=== PATIENT | female | born 1940 | race Caucasian/White ===

== ENCOUNTER 2017-02-18 12:14 | Inpatient (IN) | payer MEDICARE ==
[~2017-02-18] VITALS: Ht 157.5 cm; Wt 65.1 kg
--- NOTE | ~2017-02-18 | IDS ---
Interim Discharge Summary [facility] [address] [place]. [address] NAME: BENNY LYNCH : 42 STATUS : ADM IN [facility]#: [id number] AGE: 76 ADM/REG DATE : 02/18/17 MR#: [id number] REPORT SERV DATE: 02/21/17 DICTATED BY: JULIANNE CLAIRE DATE: 02/21/17 REPORT STATUS : Draft TRANSCRIBED BY: ALEX DATE: 02/21/17 ADMISSION DATE: 02/18/2017 DISCHARGE DATE: CONSULTATION: See AR, Cardiology. CURRENT DIAGNOSES: 1. Acute on chronic heart failure, reduced ejection fraction 25%. 2. Atrial flutter/atrial fibrillation, on chronic anticoagulation. 3. Acute hypoxic respiratory failure. 4. Chronic obstructive pulmonary disease. 5. Kidney disease stage 3. 6. Hypertension. 7. Left bundle branch block. 8. History of coronary artery disease, status post coronary artery bypass graft, 2 vessels, x2. 9. History of bioprosthetic mitral valve replacement. 10.Diabetes mellitus type 2. 11.Chronic anemia. 12.Gastroesophageal reflux disease. 13.Hyperlipidemia. 14.Depression. 15.Anxiety disorder. INVASIVE PROCEDURE PERFORMED DURING THIS ADMISSION: None. PENDING PROCEDURES: Transesophageal echocardiogram and cardiac ablation scheduled for 02/23/2017. HISTORY OF PRESENT ILLNESS: In brief, this is a 76-year-old female with medical history of coronary artery disease status post CABG, bioprosthetic mitral valve replacement, heart failure with reduced EF of 25%, suspected COPD, who presented to the emergency room after she was noticed at the Cardiac rehab to have oxygen saturation in the low 70s. She was brought into the emergency department for further evaluation. PHYSICAL EXAMINATION: VITAL SIGNS: On presentation, saturation 94% on 3 L of oxygen. BP 113/73, temperature 97.3. CHEST: Expiratory wheezing with very faint at both half of her lung moe bilaterally. LABORATORY DATA: ABG showed pH of 7.42, PaCO2 of 38, and PO2 of 58. WBC was 5.3, hemoglobin was 12.5, hematocrit was 40, platelets was 129,000. Troponin was 0.03. Chest x-ray shows pulmonary vascular congestions with asymmetric infiltrates. EKG shows atrial fibrillation with RVR and left bundle branch block. An assessment of hypoxic respiratory failure due to acute decompensated heart failure and possible COPD exacerbation with questionable pneumonia was made in the ER. The patient was Interim Discharge Summary [address] [place]. [address] NAME: BENNY LYNCH : 41 STATUS : ADM IN PAT#: [id number] AGE: 76 ADM/REG DATE : 02/18/17 MR#: [id number] REPORT SERV DATE: 02/21/17 DICTATED BY: JULIANNE CLAIRE DATE: 02/21/17 REPORT STATUS : Draft TRANSCRIBED BY: MODAmber DATE: 02/21/17 admitted to the Hospitalist Service. HOSPITAL COURSE: 1. Acute on chronic heart failure with reduced ejection fraction. The patient was started on IV diuretics, fluid restrictions, and home dose of Coreg was continued. Cardiology was consulted, and agreed to continue IV diuretics. Cardiology noted that the patient may require a REGIONAL OPERATIONS MANAGER device when the patient is able to tolerate an invasive procedure. Pending that time to continue addition of spironolactone, beta annette, and diuretics. 2. Atrial fibrillation/atrial flutter. The patient's EKG strings were reviewed by Cardiology who is in agreement with the diagnosis of tachyarrhythmias, aflutter/atrial fibrillation. The patient is on chronic anticoagulation with warfarin and will undergo TERENCE with a possible ablation during this admission. The procedure is now scheduled to 02/23/2017. 3. Pulmonary infiltrates of possible pneumonia. The patient received IV azithromycin and ceftriaxone. No cough. The patient's repeat procalcitonin was less than 0.05 after she has collected antibiotics to p.o. azithromycin and Omnicef to complete a total of seven days therapy. 4. COPD. The patient is currently receiving DuoNebs, EzPAP, and Symbicort p.r.n. Presently, not on steroids. I will continue to monitor the patient's oxygen requirement, and if she develops wheezing may initiate steroids if needed. 5. Chronic kidney disease stage 3. The patient's creatinine ranges from 1.5 to 1.8. The patient's current creatinine is 1.7. Continue IV diuretics and monitor renal function closely. CURRENT CONDITION: Stable. DISCHARGE DISPOSITION: Pending. IOO/MODL Julianne Claire MD / [id number] CC: MD Jake Boateng M.D.
--- NOTE | ~2017-02-18 | IDS ---
Interim Discharge Summary [facility] [address] [place]. [address] NAME: BENNY LYNCH : 42 STATUS : ADM IN PAT#: [id number] AGE: 76 ADM/REG DATE : 02/18/17 MR#: [id number] REPORT SERV DATE: 03/08/17 DICTATED BY: LENO ASHLEY DATE: 03/08/17 REPORT STATUS : Draft TRANSCRIBED BY: MODL DATE: 03/08/17 ADMISSION DATE: 02/18/2017 DISCHARGE DATE: PRINCIPAL DIAGNOSIS: Acute on chronic systolic congestive heart failure, ejection fraction 25%. SECONDARY DIAGNOSES: Chronic kidney disease, stage 4 with acute prerenal kidney failure, also hypoxemic respiratory failure, COPD, generalized weakness, atrial fibrillation. HISTORY OF PRESENT ILLNESS: Please see Dr. Motta' dictation on 02/18. HOSPITAL COURSE: Please see Dr. Davis's dictation 02/[address] Damico's dictation 02/26. Subsequent hospital course, the patient eventually was able to leave the ICU with improving respirations, but with deteriorating creatinine following diuresis. She was found to have actually become volume depleted and IV fluids were given with some improvement in her creatinine. A 24-hour creatinine clearance was actually being done at the time of this dictation, as her BUN to creatinine ratio was so high that we suspected very poor creatinine clearance. The patient actually was feeling quite well, although she was not tolerating any specific CHF therapies. Carvedilol was being reintroduced at the time of this dictation, however, plans were made to transfer to [facility] hopefully tomorrow. MARÍA/ALEX Leno Ashley M.D. / [id number] CC: Desiree Ramos M.D. Elmer Philip Lehman, IV, MD
--- NOTE | ~2017-02-18 | DS ---
Discharge Summary [place] [place]. [address] NAME: BENNY LYNCH : 41 STATUS : DIS IN PAT#: [id number] AGE: 76 ADM/REG DATE : 02/18/17 MR#: [id number] REPORT SERV DATE: 03/10/17 DICTATED BY: DUGLAS BHATT DATE: 03/09/17 REPORT STATUS : Draft TRANSCRIBED BY: MODL DATE: 03/09/17 ADMISSION DATE: 02/18/2017 DISCHARGE DATE: 03/09/2017 DISCHARGE DIAGNOSES: 1. Acute on chronic systolic heart failure with reduced ejection fraction of 25%. 2. Acute kidney injury on chronic kidney disease, stage IV. 3. Hypoxemic respiratory failure. 4. Chronic obstructive pulmonary disease. 5. Atrial fibrillation. 6. Generalized weakness. 7. Hypovolemia. 8. History of coronary artery bypass graft with mitral valve replacement. CONSULTING PHYSICIANS: Include Dr. Ralph Figueroa with Nephrology as well as Dr. Bruce Jonas with [facility] Cardiology as well as Dr. Sandra Damico, [facility]. DISCHARGE MEDICATIONS: Include allopurinol 100 mg p.o. daily, vitamin C 1000 mg p.o. b.i.d., aspirin 81 mg p.o. daily, Lipitor 40 mg p.o. at bedtime, amiodarone 200 mg p.o. daily, Coreg 3.125 mg p.o. b.i.d., coenzyme Q10 100 mg p.o. at bedtime, Colace 200 mg p.o. daily, melatonin 3 mg p.o. at bedtime, Remeron 15 mg p.o. at bedtime, Prilosec 40 mg p.o. daily, MiraLAX one packet p.o. daily, Mirapex 0.125 mg p.o. at bedtime, Coumadin sliding scale, budesonide inhalation b.i.d., Spiriva two puffs inhalation daily, Xopenex p.r.n. for shortness of breath, and torsemide 20 mg p.o. daily. For full H and P, please refer to Dr. Cherrie Motta' history and physical on 02/18/2017. Please also see interim discharge summaries by Dr. Julianne Davis as well as Dr. Sandra Damico and Dr. Paulo Bryan. Please also see consultation dictations by Dr. Ralph Figueroa as well as Dr. Bruce Jonas. HOSPITAL COURSE: Again, please see prior dictations, the last dictation was interim discharge summary by Dr. Paulo Bryan yesterday. The patient has remained hemodynamically stable in the last 24 hours. There was a concern of acute kidney injury on chronic kidney disease. Nephrology has followed creatinine today, it is actually down to 1.9, which I believe is her baseline. We will continue torsemide daily per Nephrology recommendations, if needed, they will follow her at [facility] post discharge. She also had some hypotension earlier in her hospital stay and her antihypertensives have been discontinued. She has not tolerated heart failure medications very well since admission. Coreg was reintroduced yesterday at 3.125 mg p.o. b.i.d. per Cardiology. Her blood pressure has been stable with a systolic blood pressure ranging from 100s to 120s. She is tolerating this. She does not complain of shortness of breath or chest pain. No lower extremity edema is present. Her initial heart failure exacerbation has been controlled with diuretics. She will follow up with [facility] Cardiology as an outpatient after going to [facility] for rehab prior to going home. Due to coordination with case management as well as discharge planning, medication Discharge Summary [address] [address] NAME: BENNY LYNCH : 41 STATUS : DIS IN PAT#: [id number] AGE: 76 ADM/REG DATE : 02/18/17 MR#: [id number] REPORT SERV DATE: 03/10/17 DICTATED BY: DUGLAS BHATT DATE: 03/09/17 REPORT STATUS : Draft TRANSCRIBED BY: MODL DATE: 03/09/17 reconciliation, education of the patient, this discharge took greater than 30 minutes. MAYA/ALEX Minh Sorto, ELEAZAR Duglas Bhatt MD / [id number] CC: MD Jake Avendano M.D.
--- NOTE | ~2017-02-18 | IDS ---
Interim Discharge Summary [facility] [address] [place]. [address] NAME: BENNY LYNCH : 41 STATUS : ADM IN PAT#: [id number] AGE: 76 ADM/REG DATE : 02/18/17 MR#: [id number] REPORT SERV DATE: 02/26/17 DICTATED BY: JONY DAMICO DATE: 02/26/17 REPORT STATUS : Draft TRANSCRIBED BY: MODAmber DATE: 02/26/17 ADMISSION DATE: 02/18/2017 DISCHARGE DATE: This patient was admitted to the Hospitalist Service on 02/18/2017. For details of admission, see the H and P on 02/18/2017, interim discharge summary on 02/22/2017. So this dictation will cover events from the 02/22/2017 to 02/26/2017. Briefly, this is a 76-year-old patient, who is status post previous open heart surgery done by Dr. Fisher in July of 2016. She had mitral valve replacement as well. She was admitted because she had increasing shortness of breath, and was found to be in rapid atrial fibrillation. She was seen by Cardiology, and it was thought prudent to try and get her into at least a normal sinus rhythm, and there was some consideration of possibly doing an ablation. The patient was taken to the EP lab on Wednesday, and during the TERENCE, required intubation secondary to hypoxia. She was in rapid atrial fibrillation. She was cardioverted after there was no evidence of clot seen on the TERENCE. However, ablation was not done since there were continued difficulties with her oxygenation. The patient remained intubated, and was then taken to the CVICU for further care. During the TERENCE, she was found to have an ejection fraction of 25%, severe tricuspid regurg, a PFO with uvalj-cf-minc shunt. There were some difficulties oxygenating her, and she responded well to being put on dobutamine on Wednesday night. [place] catheter was placed as well. She was on as much as 7.5 mcg/kg/minute of dobutamine. She did not tolerate dopamine. She has required aggressive diuresis, and seems to be responding to being put on a Bumex drip at 2 mg an hour. She initially was on 1 mg an hour without good results. Diuril was then added and increased on the 02/26/2017 to 150 mg IV b.i.d. She has underlying CKD at level 3, and Nephrology is following the patient, and agrees with diuretics. She also carries a history of COPD, but the extent of her COPD is unknown. In my opinion, most of this is cardiogenic. In any event, the patient on 02/26/2017, seems to be improving, and actually is off dobutamine. Continues to be aggressively diuresed, and has tolerated spontaneous breathing trials. The plan will be to continue aggressive diuresis, and if stable, extubate the patient over the weekend. I have discussed with the family as has Dr. Colbert about code status. She currently is a full code, and if she fails extubation, the family wants her at least briefly to be re-intubated. Issues with constipation have been addressed. /MODL Jony Damico M.D. / [id number] CC: Desiree Lopez M.D.
--- NOTE | ~2017-02-18 | HP ---
History And Physical [place] [address] [facility] [place]. [address] NAME: BENNY LYNCH : 41 STATUS : ADM IN [facility]#: [id number] AGE: 76 ADM/REG DATE : 02/18/17 MR#: [id number] REPORT SERV DATE: 02/18/17 DICTATED BY: CORY MOTTA DATE: 02/18/17 REPORT STATUS : Draft TRANSCRIBED BY: MODAmber DATE: 02/18/17 DATE OF ADMISSION: 02/18/2017 CHIEF COMPLAINT: Shortness of breath. HISTORY OF PRESENT ILLNESS: The patient is a very complex 76-year-old white female. She has a history of undergoing a coronary artery bypass grafting and mitral valve replacement with a bovine valve in 07/2016. In 06/2016, her EF is approximately 50%. She has had at least previous history of an admission in 10/2016 at [facility] where she was found to have an EF that had reduced to 25%. At that time, she had heart failure as well as some suspected COPD. She reports today to the emergency room after being a cardiac rehab where she was training on an elliptical business trainer, staff noted that her oxygen saturation was low and reported that her oxygen saturation was as low as 70. She was brought over via EMS. They had some difficulty obtaining a sat in the emergency department. Upon my arrival, I easily got a sat on her with a finger probe by changing the probe, she is 94% on 3 L. She reports she has had shortness of breath for about two to three weeks. She has had a cough, but not much in the way of sputum production. She has had some wheezing. Her daughter reports that she has been weak. Frequently at times, she gets short of breath while talking. She denies chest pain, abdominal pain, nausea, or vomiting. She had some previous edema that she had some lymphatic massage for in the past, but she has not had a lot of edema at this time. She previously smoked, but quit about 25 years ago. She has had no documented fevers or chills. PAST MEDICAL HISTORY: 1. CAD status post CABG. 2. Mitral valve replacement with a bovine valve, 07/2016. 3. Left bundle-branch block. 4. CHF with last EF reported at 25% in 10/2016. 5. COPD with history of tobacco abuse. 6. Previous pneumonia. 7. Chronic kidney disease, stage III. 8. Anemia, iron deficiency. 9. GERD. 10.Hypertension. 11.Hyperlipidemia. 12.PFO. 13.Arthritis. 14.Gout. 15.Skin cancer. 16.Depression. 17.Anxiety. 18.Hepatitis, unknown type remotely. SURGICAL HISTORY: 1. Nose surgery. 2. A plate in her leg. History And Physical [address] [address] NAME: BENNY LYNCH : 41 STATUS : ADM IN PAT#: [id number] AGE: 76 ADM/REG DATE : 02/18/17 MR#: [id number] REPORT SERV DATE: 02/18/17 DICTATED BY: CORY MOTTA DATE: 02/18/17 REPORT STATUS : Draft TRANSCRIBED BY: ALEX DATE: 02/18/17 3. Skin cancer excision. 4. CABG. 5. Mitral valve replacement with bovine valve. FAMILY HISTORY: Positive for hypertension and diabetes. SOCIAL HISTORY: She quit smoking about 20 years ago. She smoked for about 15 years, one- pack per day. She is . She does not use alcohol and she lives independently. ALLERGIES: NSAIDS, MORPHINE, AND CODEINE. HOME MEDICATIONS: Reviewed and attached. REVIEW OF SYSTEMS: Full 10-point review of systems obtained. Pertinent positives already mentioned in the HPI. PHYSICAL EXAMINATION: VITAL SIGNS: She is 95% on 3 L, most recent BP 113/73, temperature 97.3, pulse is anywhere from 99 to 115. GENERAL: Very frail appearing white female. HEENT: Normocephalic, atraumatic. Throat is clear. NECK: Supple. HEART: Irregular. Distant S1, S2. LUNGS: She has expiratory wheezing which is very faint about retirement up her lung moe bilaterally. She also has some very discrete crackles in bilateral lower lobes. ABDOMEN: Soft, nontender, nondistended. EXTREMITIES: Warm and dry. Pulses are as in the feet with palpation, but are easily found with a Doppler. She has some trace edema which is pedal. She has a small ulcer on her medial malleolus on the left lower extremity secondary to a screw that is migrating. This is not new today. PSYCH: Her mood and affect are appropriate. NEUROLOGIC: She has symmetrical strength and tone in all four extremities. Her speech is intact. Her cranial nerves 2 through 12 are intact. LAB AND X-RAY: AB.42/38/58. White count is 5.3, H and H 12.5 and 40, platelets are 129. Coags are normal. Chemistry panel: BUN and creatinine are 34 and 1.71, glucose 161. Troponin is 0.03. Mag is 2.1. The remainder of her electrolyte panel is normal. BNP is 2178. Chest x-ray shows what looks like to me asymmetrical edema, right greater than left. EKG showed what looks like AFib with RVR with a rate around 115 and a left bundle, this does appear to be new as far as the AFib. ASSESSMENT/PLAN: 1. Hypoxemic respiratory failure, acute on chronic with evidence of likely decompensated systolic heart failure as well as possible chronic obstructive pulmonary disease playing a role. I did consider pneumonia given the fact that she has an asymmetrical infiltrate on her chest x-ray. However, she has no white count. No fever. I think it is reasonable overnight to diurese her, attempt to control her atrial fibrillation with History And Physical [address] [address] NAME: BENNY LYNCH : 41 STATUS : ADM IN [facility]#: [id number] AGE: 76 ADM/REG DATE : 02/18/17 MR#: [id number] REPORT SERV DATE: 02/18/17 DICTATED BY: CORY MOTTA DATE: 02/18/17 REPORT STATUS : Draft TRANSCRIBED BY: ALEX DATE: 02/18/17 rate control initially, also diurese her with Lasix 40 mg IV q.8 hours. In addition, we will provide DuoNeb and cover her for pneumonia overnight until I see that her procalcitonin is normal and a repeat white count is normal in the morning. Hopefully, with diuresis, she will improve. I think given her ejection fraction of 25%, continued episodes of heart failure, she may be a patient who we should consider for AICD and pacer. 2. New onset atrial fibrillation. We will place her on Eliquis for rate control, continue her beta annette. May add a Cardizem drip should she need it. We will have Cardiology to see her in consultation. She has a complex patient with recent open heart surgery and now worsening systolic function in the face of new onset atrial fibrillation. 3. Chronic obstructive pulmonary disease with possible exacerbation. Again Robert Almanza, treat underlying heart failure. 4. History of chronic kidney disease, stable and in baseline. We will need to follow closely. 5. History of coronary artery disease, status post coronary artery bypass graft with a new ischemic cardiomyopathy since June. 6. Anticoagulation. She is going to be on Eliquis. 7. Anemia. Actually looks quite good today. She is status post IV iron. 8. Disposition. Pending above aforementioned plan and workup. BRANDEE/MODAmber Cory Motta M.D. / [id number] CC: MD Jake Boateng M.D. Robert Berglund, M.D.
--- NOTE | ~2017-02-18 | TEE ---
Transesophageal Echocardiogram [place] [address] [place]. [address] NAME: BENNY LYNCH : 41 STATUS : ADM IN [facility]#: [id number] AGE: 76 ADM/REG DATE : 02/18/17 MR#: [id number] REPORT SERV DATE: 02/23/17 DICTATED BY: DATE: REPORT STATUS : Draft TRANSCRIBED BY: MODL DATE: 02/23/17 ORDERING PHYSICIAN: Sunil Aguero M.D. INDICATION: Preoperative atrial flutter ablation. CONSENT: The patient's history was reviewed and appropriateness for the procedure was ascertained. There were no significant or concerning findings on history or exam such as dysphagia or esophageal stricture. All questions were answered and consent was obtained. PROCEDURE: Sedation via propofol administration by our Anesthesia colleagues was obtained. The probe was inserted without difficulty, and exam was performed as below. [place] through the exam, the patient developed some hypoxia, so the probe was withdrawn uneventfully in order to allow for intubation by Anesthesia in anticipation of the ablation. After intubation and airway were successfully secured, the remainder of the procedure continued without any disruption or complications. COMPLICATIONS: There were no immediate complications following the entirety of the procedure. FINDINGS: 1. LEFT VENTRICLE:. a. The left ventricle is severely hypokinetic with an estimated EF of 25%. In fact, there is evidence of dyskinesis visualized on the free mortensen of the left ventricle. 2. LEFT ATRIUM:. a. The left atrium is moderately to severely dilated. There is no evidence of atrial clot or poor forward flow. 3. LEFT ATRIAL APPENDAGE:. a. The left atrial appendage is status post ligation. This occurred in conjunction with the mitral valve replacement in July [address] Fisher. A blunted pouch was visualized, but no clot was visualized. Pulmonary veins were also visualized on the left upper pulmonary site. Doppler flow was obtained. 4. RIGHT VENTRICLE:. a. The right ventricle was mildly enlarged and mildly hypokinetic globally. 5. RIGHT ATRIUM:. a. The right atrium was severely enlarged owing to the severe TR as discussed below. 6. INTERATRIAL SEPTUM:. a. The interatrial septum was visualized in multiple planes. The patent foramina ovale was visualized, with what appears to be a cytyr-ys-kdav flow on account of the severe tricuspid regurgitation. 7. AORTIC VALVE:. a. The aortic valve is calcified and sclerotic. Stenosis is possible, but was not directly measured on this test. 8. MITRAL VALVE:. a. The mitral valve is status post bovine valve replacement. There was trivial regurgitation through the leaflets, which appeared normal. There is mild Transesophageal Echocardiogram [facility] [address] [place]. [address] NAME: BENNY LYNCH : 42 STATUS : ADM IN PAT#: [id number] AGE: 76 ADM/REG DATE : 02/18/17 MR#: [id number] REPORT SERV DATE: 02/23/17 DICTATED BY: DATE: REPORT STATUS : Draft TRANSCRIBED BY: MODL DATE: 02/23/17 trivial perivalvular leak, which was felt to be insignificant. 9. PULMONIC VALVE:. a. The pulmonic valve is not well-visualized. 10.TRICUSPID VALVE:. a. The tricuspid valve has severe TR visually, as well as by continuous-wave Doppler, which revealed a triangular pattern consistent with a severe TR. The PFO mentioned previously appeared to receive blood from the right atrium into the left atrium as a result of this tricuspid regurgitation. 11.DESCENDING AORTA:. a. The descending aorta was poorly-visualized, but mild to moderate atherosclerosis was visualized in that. CONCLUSION: 1. STATUS POST LEFT ATRIAL APPENDAGE LIGATION WITH BLUNTED POUCH, WITHOUT EVIDENCE OF RESIDUAL CLOT. 2. SEVERELY REDUCED LEFT VENTRICULAR EJECTION FRACTION WITH THE SYNCHRONY, ESTIMATED EF OF 25%. 3. SEVERE TR. 4. PFO IS PRESENT. 5. STATUS POST BOVINE MITRAL VALVE REPLACEMENT. 6. AT LEAST AORTIC SCLEROSIS. EPL/MODL Anjel Thorpe IV, MD / [id number] CC: MD Jake Boateng M.D.
--- NOTE | ~2017-02-18 | CN ---
Consultation Report [facility] [address]. [address] NAME: ELIZABETH SCHERER : 42 STATUS : ADM IN PAT#: [id number] AGE: 76 ADM/REG DATE : 02/18/17 MR#: [id number] REPORT SERV DATE: 02/19/17 DICTATED BY: DATE: REPORT STATUS : Draft TRANSCRIBED BY: MODL DATE: 02/18/17 DATE OF CONSULTATION: 02/18/2017 REASON FOR CONSULTATION: Acute on chronic systolic heart failure decompensation and new onset atrial fibrillation with rapid ventricular response. HISTORY OF PRESENT ILLNESS: Ms. Scherer is a delightful 76-year-old female with a history of ischemic cardiomyopathy, last EF 25%, without AICD; coronary artery disease, status post [address] 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 She is accompanied by her daughter, who provides a fair amount of history. Both the patient and the daughter admit that the patient while compliant with medications, has very little discretion with salt. She has stopped weighing herself daily, but she feels that she is probably up about five to ten pounds from her baseline weight. She has noted increasing dyspnea, and needs to sleep with her head raised. She denies PND. She endorses lower extremity edema. She also endorses dyspnea on exertion. She was complaining of these things a couple of weeks ago to another physician, but an EKG was not obtained. She was at cardiac rehab today, waiting to start the program, but was hypoxic and no oxygen could get her O2 levels up, reportedly. Consequently, she presented to the emergency department at their request. On arrival, it was noted that Ms. Elizabeth Scherer was in atrial fibrillation with RVR. Reportedly, her rates exceeded 100, but the highest rates we have on EKG are in the 90s to low 100s. She was admitted to the Hospitalist Service, and we are consulted to help with the above concerns. She does endorse that her heart is fast, but denies any palpitations. She does endorse dyspnea, but no chest pain. No nausea, vomiting, fevers, or chills. PAST MEDICAL HISTORY: 1. Coronary artery disease, status post two-vessel bypass grafting with left atrial appendage ligation and status post bioprosthetic mitral valve replacement. 2. Left bundle branch block. 3. Hypertension. 4. CKD stage 3. 5. COPD. 6. Type 2 diabetes. SOCIAL HISTORY: Former smoker. No alcohol. She is a as of this year. Consultation Report [place] [address] [place]. [address] NAME: ELIZABETH SCHERER : 42 STATUS : ADM IN PAT#: [id number] AGE: 76 ADM/REG DATE : 02/18/17 MR#: [id number] REPORT SERV DATE: 02/19/17 DICTATED BY: DATE: REPORT STATUS : Draft TRANSCRIBED BY: ALEX DATE: 02/18/17 FAMILY HISTORY: Both her mother and brother have a history of CHF. Her father had an SD. ALLERGIES: CEFDINIR, CODEINE, MORPHINE. CURRENT INPATIENT MEDICATIONS: 1. Apresoline 10 mg p.o. twice daily. 2. Bumex IV 1 mg q.8 hours. 3. Diltiazem drip, presently on hold. 4. Co-Q enzyme. 5. Coreg 3.125 mg p.o. twice daily. 6. Eliquis 2.5 mg p.o. twice a day. 7. Lipitor 40 mg p.o. at bedtime. 8. Mirapex 0.25 mg p.o. at bedtime. 9. Proventil inhaled every six hours. 10.Pulmicort twice a day. 11.Rocephin 1 g. 12.Vitamin C. Please note that the patient is normally on torsemide 20 mg p.o./10 mg at bedtime. She does not report being on Eliquis at all, this was started as an inpatient. REVIEW OF SYSTEMS: The patient endorses the aforementioned fast heart rate without palpitations, dyspnea. No PND. Mild lower extremity edema and weight gain. She also has had a cough. She reports easy bruising as well. She had previously been on warfarin, but was taken off it secondary to this bruising she says. She also endorses that she has had some blood loss, but she has not had a definitive workup for this. Specifically, she says that she, due to her heart, has been unable to undergo a colonoscopy. Her labs will be discussed later. PHYSICAL EXAMINATION: VITAL SIGNS: Heart rate 92, blood pressure 113/73, saturating 92% on 4 L nasal cannula. Her entry weight is 66 kg. GENERAL: Ms. Scherer is a pleasant female, elderly, in no acute distress. HEENT: Normocephalic and atraumatic. EOMI. Mucous membranes are dry. NECK: The JVP is elevated approximately 5 cm above the clavicle at 30 degrees. LUNGS: Diffuse inspiratory and expiratory wheezes are heard across the lung moe. CARDIOVASCULAR: The patient is irregularly irregular, borderline tachycardic. No murmur could be appreciated. ABDOMEN: Soft, nontender, and nondistended. EXTREMITIES: The patient has a resting tremor in her upper extremities. She also has 1+ lower extremity edema to her shins. NEUROLOGIC: Alert and oriented. Cranial nerves II through XII are grossly intact. LAB DATA: Hemoglobin 12.5, hematocrit 40.5, white count 5.3, and platelets are 129. BMP: Sodium 141, potassium 4.1, bicarb 24, BUN 34, creatinine 1.7, estimated GFR 29. Consultation Report [address] [place]. [address] NAME: ELIZABETH SCHERER : 42 STATUS : ADM IN [facility]#: [id number] AGE: 76 ADM/REG DATE : 02/18/17 MR#: [id number] REPORT SERV DATE: 02/19/17 DICTATED BY: DATE: REPORT STATUS : Draft TRANSCRIBED BY: MODL DATE: 02/18/17 Troponin I 0.03. BNP 2179. Magnesium 2.1. EKG: EKG reveals a tachycardic, seemingly irregular rhythm without obvious flutter waves, though this was considered but is difficult to discern despite multiple attempts secondary to baseline artifact. She also has numerous PVCs. Prior echocardiography: Prior echo was reviewed and was notable for moderate biatrial enlargement, an EF of 25%, mild aortic valve stenosis, and LV enlargement. She also had severe tricuspid regurgitation. ASSESSMENT AND PLAN: Ms. Scherer is a 76-year-old female with multiple cardiovascular issues. She seems to present in acute decompensated heart failure, and I agree with the hospitalist strategy to diurese her with IV Bumex. I would recommend a net negative loss of 2 L per day with strict Is and Os and daily weights. I am concerned that this new onset atrial dysrhythmia, which I favored to be atrial fibrillation, is exacerbating her heart failure. Unfortunately, with her EF down, as well as moderate biatrial enlargement, it will probably be very tricky for her to stay in a normal sinus rhythm. Hopefully with diuresis, this might be the case. I would like to try and get her TERENCE cardioverted tomorrow, though I am unaware whether or not we have an opening on our schedule for that at this time. I will inquire to see if it may be the case. In the interim, I would like to stop her Eliquis. She said she had mitral regurgitation, but now she has a bioprosthetic mitral valve. In general, I tend to treat valvular atrial fibrillation with warfarin over the NOACs. While technically, mitral valve regurgitation is not a contraindication of NOAC, with her having a bioprosthetic valve, I would favor warfarin. Thus, I will start her on a heparin drip tonight so she can become therapeutic by tomorrow, and initiate her on 4 mg of warfarin p.o. tonight. She also has an appointment tomorrow with Dr. Serrato at 09:30 to consider ICD implantation. While this is important in the long run, I will put it on the back burner for now. Typically, we do not implant primary prevention defibrillators at the end of hospitalization, but depending on how she does, as well as our availability, this may be a possibility. [facility] will continue to follow. Thank you for this consult. EPL/MODL Anjel Thorpe IV, MD / [id number] Consultation Report [place] [id number] [facility] [address] NAME: ELIZABETH SCHERER : 42 STATUS : ADM IN PAT#: [id number] AGE: 76 ADM/REG DATE : 02/18/17 MR#: [id number] REPORT SERV DATE: 02/19/17 DICTATED BY: DATE: REPORT STATUS : Draft TRANSCRIBED BY: ALEX DATE: 02/18/17 CC: MD Jake Boateng M.D.
--- NOTE | ~2017-02-18 | CN ---
Consultation Report [facility] [address] [place]. [address] NAME: BENNY LYNCH : 42 STATUS : ADM IN PAT#: [id number] AGE: 76 ADM/REG DATE : 02/18/17 MR#: [id number] REPORT SERV DATE: 02/22/17 DICTATED BY: RHONDA ABRAHAM SAMUEL O. DATE: 02/19/17 REPORT STATUS : Draft TRANSCRIBED BY: ALEX DATE: 02/19/17 ELECTROPHYSIOLOGY CONSULTATION I WAS ASKED SEE THE PATIENT FOR ATRIAL FLUTTER. DATE OF CONSULTATION: PRIMARY QUARANTINE INSPECTOR: Dr. Thorpe. HISTORY: A 76-year-old female with history of coronary disease, status post CABG; severe mitral regurgitation, status post mitral valve replacement with a bioprosthetic valve in 07/2016; heart failure with reduced ejection fraction with an EF of 25%, who presented to the hospital with acute decompensated heart failure and was noted to be in atrial flutter with heart rates of 90-120 beats per minute. She has now been diuresed and remains with heart rates in 90s to 120. Review of the EKGs reveal typical appearing atrial flutter. The patient has had a history of atrial fibrillation in the past especially in the postoperative period. She has never had prior ablation. She was briefly on amiodarone and the postoperative state, but apparently had complications with this and was not able to tolerate it. Much of the history is obtained by her family members to include her daughter. Apparently over the last year, the patient has had a continual decline in her functional status. She was having increased dyspnea on exertion and after found to have coronary artery disease and her severe mitral regurgitation, I was hopeful to have improvement in her symptoms in 07/2016. Afterwards she had pain and was given multiple narcotics and just never really bounced back per the family. She also has hypertension, stage 3 CKD, COPD, and type 2 diabetes. PAST MEDICAL HISTORY: 1. Coronary artery disease, status post two-vessel CABG with a left atrial appendage ligation and severe bioprosthetic mitral valve replacement for severe mitral regurgitation. 2. History of left bundle-branch block. 3. Hypertension. 4. CKD, stage 3. 5. COPD. 6. Type 2 diabetes. SOCIAL HISTORY: Prior smoker, but not currently. There is no alcohol use. Her did within the last year. She has several daughters who are very active in her medical care. FAMILY HISTORY: Her father had a myocardial infarction. Consultation Report [address] [place]. [address] NAME: BENNY LYNCH : 42 STATUS : ADM IN PAT#: [id number] AGE: 76 ADM/REG DATE : 02/18/17 MR#: [id number] REPORT SERV DATE: 02/22/17 DICTATED BY: ROHNDA ABRAHAM SAMUEL O. DATE: 02/19/17 REPORT STATUS : Draft TRANSCRIBED BY: ALEX DATE: 02/19/17 ALLERGIES: CEFDINIR, CODEINE, AND MORPHINE. CURRENT ACTIVE INPATIENT MEDICINES: She is on hydralazine 10 mg p.o. b.i.d., carvedilol 3.125 mg p.o. b.i.d., aspirin 81 a day, atorvastatin 40 at bedtime, Bumex 1 mg b.i.d., and warfarin 4 mg at night. She has been on a heparin drip. She is also on noncardiac medicines of the vitamin C, azithromycin, Rocephin, coenzyme Q10, Spiriva, pantoprazole, levalbuterol, polyethylene glycol, pramipexole, Atrovent. REVIEW OF SYMPTOMS: Negative other than described above. PHYSICAL EXAMINATION: GENERAL: A very pleasant female, elderly, sitting up in a chair. Tachypneic and dyspneic. VITAL SIGNS: Weight is 67.4 kg, temperature of 97, pulse of 105, blood pressure 116/77, respirations of 22, saturating 96% on 40% FiO2. HEENT: Normocephalic, atraumatic. Moist mucous membranes. Nasal cannula in place. There is jugular venous distention to 10 cm. There are no carotid bruits. CHEST: Midline sternotomy. LUNGS: Have rales in the inferior third. CARDIOVASCULAR: Tachycardic. Regular rhythm. No murmurs, rubs, or gallops. ABDOMEN: Soft, nontender, and nondistended. EXTREMITIES: There is mild edema to the mid-de la rosa and pulses are diminished distally. NEUROLOGIC: Alert and oriented fully. No focal deficits. PSYCHIATRIC: Normal mood and affect. LABORATORY DATA: Sodium 142, potassium 3.9, BUN of 33, creatinine of 1.6. White blood cell count 4.8, hemoglobin of 12.5, platelets of 135. Troponin of 0.16. BNP of 2200. Electrocardiogram reveals atrial flutter with a heart rate of 95. There is a left bundle- branch block. The flutter waves are negative in the inferior leads, positive in V1. Telemetry reveals atrial flutter, rates 90 to 120. PROBLEMS: 1. Atrial tachyarrhythmias. She is currently in atrial flutter with rates of 90s to 120s. This appears to be cavotricuspid isthmus dependent. Of note, she has a history of atrial fibrillation by history and did not tolerate amiodarone in the postoperative state. I think she is a reasonable candidate for EP study and radiofrequency ablation, but at the current time, will need diuresis in order to be optimized for the procedure. She initially was placed for TERENCE cardioversion today, but was unable to have this scheduled. I have discussed with the patient and her daughters the options for treatment and they wished to proceed with ablation. The risks of the procedure were discussed to include bleeding, damage to the heart muscle, tamponade, damage to conduction system requiring a need for a pacemaker, allergic reaction, infection, vascular damage, and all questions were answered. Tentatively we will plan for continue to diurese to optimize patient and likely TERENCE on Wednesday followed by EP study and ablation. The patient will require long-term anticoagulation given her history of atrial fibrillation. In the interim, we will rate control her. Consultation Report [place] [id number] [facility] [place]. [address] NAME: BENNY LYNCH : 42 STATUS : ADM IN PAT#: [id number] AGE: 76 ADM/REG DATE : 02/18/17 MR#: [id number] REPORT SERV DATE: 02/22/17 DICTATED BY: RHONDA ABRAHAM SAMUEL O. DATE: 02/19/17 REPORT STATUS : Draft TRANSCRIBED BY: ALEX DATE: 02/19/17 2. Heart failure with reduced ejection fraction of 25% with acute decompensated heart failure. This is likely exacerbated by her arrhythmia. Continue aggressive diuresis. Of note, she has a left bundle-branch block with her ejection fraction not responding to medical therapy, therefore she will need a HOUSING AND RESIDENCE LIFE DIRECTOR-D eventually. She has been treated with beta annette and hydralazine as she has been deemed not a candidate for HILTON or ARB and had a surgery done on 07/2016. 3. Hypoxia requiring supplemental oxygen at this time. This is secondary to acute decompensated heart failure as well as her underlying COPD. Continue to diurese. 4. Coronary artery disease, status post CABG. Continue her aspirin and statin. Currently not having angina. 5. Elevated troponin. Suspect this is secondary to heart failure. 6. History of COPD. 7. CKD, stage 3. PLAN: 1. Continue to diurese as you are doing. 2. Likely TERENCE followed by EP study and ablation on Wednesday or Wednesday of next week. 3. Continue oral anticoagulation given her bioprosthetic aortic valve as well as atrial flutter and history of atrial fibrillation. Coumadin is reasonable as you are doing. 4. Will attempt to rate control the patient. We are switching from carvedilol to metoprolol today. Thank you very much for this interesting consult. SOJ/MODL Bruce Abraham MD / [id number] CC: MD Jake Boateng M.D.
--- NOTE | ~2017-02-18 | CN ---
Consultation Report [facility] [address] [place]. [address] NAME: BENNY SCHERER : 42 STATUS : ADM IN [facility]#: [id number] AGE: 76 ADM/REG DATE : 02/18/17 MR#: [id number] REPORT SERV DATE: 02/24/17 DICTATED BY: ESTEFANI DORSEY DATE: 02/24/17 REPORT STATUS : Draft TRANSCRIBED BY: MODL DATE: 02/24/17 NEPHROLOGY CONSULT DATE OF CONSULTATION: 02/24/2017 REASON FOR CONSULT: Acute kidney injury on chronic kidney disease. HISTORY OF PRESENT ILLNESS: Ms. Scherer is a 76-year-old white female, who appears to have some degree of chronic kidney disease. Baseline creatinine appears to be in the 1.4 to 1.8 range dating back to January 2016. She was seen here at [facility] by our group in July 2016 when she developed acute kidney injury with creatinine peaking at 2.1 postop. Dialysis was not required. She has been here this time since 02/18/2017. Since admission, her creatinine has fluctuated between 1.6 and 1.8. She went into atrial fibrillation, flutter and yesterday underwent cardioversion, but developed hypoxia and hypotension during an attempted ablation. She ended up on the ventilator and is now in the CV ICU on Levophed and dobutamine. Urine output has decreased over the last 24 hours. Her CVP is 15 and today creatinine is 1.9. Chest x-ray shows mild bilateral perihilar edema. PAST MEDICAL HISTORY: 1. Chronic kidney disease, baseline creatinine 1.4 to 1.8 since January 2016. 2. CABG x2 with MVR in July 2016. 3. Reported EF 25% with unknown right-sided pressures. 4. COPD. 5. Hypertension. 6. Hyperlipidemia. 7. Atrial fibrillation/flutter postop day #1, cardioversion. MEDICATIONS: Vitamin C, aspirin, Lipitor, Ceftin, CoQ10, hydralazine 10 mg b.i.d., melatonin, Lopressor 25 mg q.8 hours, Protonix, MiraLAX, potassium 10 mEq t.i.d. Mirapex, Coumadin sliding scale, fentanyl URBAN RENEWAL MANAGER, dobutamine at 7.5, and Levophed at 3. Family history, social history, and review of systems could not be obtained in to the patient's current condition on the ventilator. PHYSICAL EXAMINATION: VITAL SIGNS: Temperature 99.3, pulse 70, respirations 23, blood pressure 93/51, 91% sat on 40% FiO2. CVP 15, 3219 mL of intake with 1958 mL of urine output documented in the last 24 hours with a recent decrease in urine output per nursing staff. GENERAL: She is an ill-appearing elderly white female on the ventilator, presently in no distress. HEENT: Sclerae without icterus. Conjunctivae not injected. Oropharynx is clear. NECK: JVD 10 cm. She has diffuse bilateral rhonchi without dyspnea or tachypnea on the ventilator. Regular rate and rhythm. 2/6 murmur. No rub. ABDOMEN: Soft, nontender, nondistended. Consultation Report [address] [place]. [address] NAME: BENNY SCHERER : 42 STATUS : ADM IN [facility]#: [id number] AGE: 76 ADM/REG DATE : 02/18/17 MR#: [id number] REPORT SERV DATE: 02/24/17 DICTATED BY: ESTEFANI DORSEY DATE: 02/24/17 REPORT STATUS : Draft TRANSCRIBED BY: ALEX DATE: 02/24/17 EXTREMITIES: Showed no edema. SKIN: Shows no rash. She has clear yellow urine in the Goyal catheter with subjective decrease in urine output. NEURO: Deferred. LABORATORY DATA: Sodium 136, potassium 4.5, bicarb 25, BUN 41, creatinine 1.9, GFR 25, procalcitonin 0.23, calcium 8.8, magnesium 2.3, phosphorus 3.4, albumin 2.7. Liver function tests normal. Hemoglobin 11.8, white count 6.4 thousand without eosinophilia. INR 2.8. Platelets 138,000. ASSESSMENT AND PLAN: Ms. Scherer has chronic kidney disease, baseline creatinine 1.4 to 1.8, now with acute kidney injury; hypotension, on pressors; respiratory failure; postop day #1 cardioversion for atrial fibrillation/flutter; coronary disease with bypass surgery and mitral valve replacement in July 2016; EF 25%; volume overload; decreased urine output; and hypoalbuminemia. I suspect her acute kidney injury is most likely related to acute tubular necrosis from renal hypoperfusion from relative hypoxia and hypotension after her procedure yesterday. We will diurese and follow with her elevated CVP. We will try Bumex, albumin, and Diuril to see if we can increase urine output. Continue supportive care. Watch labs. Avoid nephrotoxic medications. Overall, she is a poor chronic dialysis candidate with her multiple comorbid illnesses. Hopefully, dialysis can be avoided. We will follow closely with you and appreciate consult. NC/MODL Estefani Dorsey M.D. / [id number] CC: Desiree Lopez M.D.
[~2017-02-18 12:14] MED LIST: ACTOS45 PO; ADVIL PO; ALTA2.5 PO; AMIT75 PO; APRES10B PO; APRES50 PO; ASAB PO; BACDS PO; BACTROINT TOP; BISR PR; BIST PO; BUSPAR15 M1 PO; BUSPAR5 PO; CALCIUM PO; CIP5 PO; CLIN200 PO; CO Q-10 PO; CO Q-10100 MG PO; CO Q-1050 MG PO; COENZYME Q10 PO; COREG12 PO; COREG3 PO; COREG6 PO; DEMA20 PO; FERROUS SULF325 M1 PO; FISH-EPA1000 MG PO; FLEET ENEMA PR; FLEX PO; FLORASTOR250 MG PO; GLUCPH PO; IMDUR120 PO; IMDUR30 PO; IRON INFUSION IV; IRON PO; ISMO20 MG PO; ISOSORB DIN30 MG PO; K250 PO; K500 PO; KDUR20 PO; KLOR-CON M2020 MEQ PO; L40 PO; LEVAQUIN5T PO; LIPITOR10 PO; LIPITOR40 PO; LODOSYN PO; METAMUCIL CAN7 OZ PO; MIRALAXPKT PO; MIRAPEX125 PO; MOMUD PO; MONOKET PO; NORCO1 TA1 PO; OCEAN NAS; OMNICEF300 PO; P10 PO; P5 PO; POTASSIUM PO; PR25 PO; PRILOSEC40 MG PO; SENTAB PO; SIN25 PO; SKELAXIN8 PO; SPIRO25 PO; T PO; TAMIFLU PO; TRAZ50 PO; TRICOR PO; TRICOR145 PO; VITAMIN C100 MG PO; VITC500 PO; VOLTAREN1 % TOP; [UNRECOGNIZED DRUG - OTHER] PO; [UNRECOGNIZED DRUG - OTHER] PO; [UNRECOGNIZED DRUG - REMARK] TOP
[2017-02-18 13:40] LABS: BASOPHILS 0.8 %; BASOPHILS ABSOLUTE 0.04 10/3/uL (0.0-0.16); EOSINOPHILS 3.6 %; EOSINOPHILS ABSOLUTE 0.19 10/3/uL (0.0-0.53); ER CBC TAT 0 Hrs 05 Mins; HEMATOCRIT 40.5 % (36.0-48.0); HEMOGLOBIN 12.5 g/dL (12.0-16.0); LYMPHOCYTES 14.5 %; LYMPHOCYTES ABSOLUTE 0.76 10/3/uL (0.67-4.30); MEAN CORPUS HGB CONC 30.9 g/dL (32.0-36.0); MEAN CORPUSCULAR HEMOGLOB 27.2 pg (26.0-34.0); MEAN PLATELET VOLUME 10.9 fL (9.2-13.0); MONOCYTES 10.1 %; MONOCYTES ABSOLUTE 0.53 10/3/uL (0.21-1.20); NEUTROPHILS ABSOLUTE 3.73 10/3/uL (2.02-8.40); RBC DISTRIBUTION WIDTH 19.7 % (12.0-16.0); WHITE BLOOD CELLS 5.3 10/3/uL (4.5-10.5)
[2017-02-18 13:43] LABS: MANUAL DIFF NO %; PLATELET COUNT 129 10/3/uL (150-400)
[2017-02-18 13:48] LABS: PARTIAL THROMBO TIME 32.8 SEC (22.5-37.2)
[2017-02-18 13:48] LABS: ALLENS TEST Pos; BE (BASE EXCESS) -0.3 MEQ/L (0 +/- 2.5); CARBOXYHEMOGLOBIN 1.6 % (0-3); HCO3 (ACTUAL BICARBONATE) 23.9 MEQ/L (23-27); HEMOBLOGIN CONTENT 12.9 G/DL (12-16); INSTRUMENT SERIAL # 8087; METHEMOGLOBIN 0.4 % (0-3); O2 CONTENT 15.7 VOL% (18-24); PCO2 (CO2 TENSION) 38 MMHG (35-45); PO2 (O2 TENSION) 58 MMHG (79-93); SAMPLE Arterial; pH 7.42 (7.37-7.43)
[2017-02-18 13:49] LABS: INTERNATIONAL NORMAL RATI 1.4 UNITS (-); PROTIME (NOT ORD) 17.2 SEC (12.0-14.5)
[2017-02-18 13:54] LABS: BUN (BLOOD UREA NITROGEN) 34 MG/DL (6-23); CALCIUM, SERUM 8.3 MG/DL (8.5-10.4); CHEST PAIN PROFILE TAT 0 Hrs 19 Mins; CHLORIDE, SERUM 108 MMOL/L (96-112); CO2 (CARBON DIOXIDE) 24 MMOL/L (24-34); CREATININE 1.71 MG/DL (0.55-1.02); GFR AFRICAN AMERICAN 33 ML/MIN (>=60); GFR NON AFRICAN AMERICAN 29 ML/MIN (>=60); GLUCOSE, SERUM 161 MG/DL (60-99); POTASSIUM, SERUM 4.1 MMOL/L (3.5-5.3); SODIUM, SERUM 141 MMOL/L (135-148); TROPONIN I 0.03 NG/ML (<0.05)
[2017-02-18] MEDS ORDERED: VITC500 PO (16:09)
[2017-02-18] MEDS ORDERED: DEMA20 PO (16:10)
[2017-02-18] MEDS ORDERED: COREG3 PO (16:10)
[2017-02-18] MEDS ORDERED: APRES10B PO (16:10)
[2017-02-18] MEDS ORDERED: PRILOSEC40 MG PO (16:11)
[2017-02-18] MEDS ORDERED: ASAB PO (16:11)
[2017-02-18] MEDS ORDERED: KLOR-CON M2020 MEQ PO (16:12)
[2017-02-18] MEDS ORDERED: MIRAPEX125 PO (16:12)
[2017-02-18] MEDS ORDERED: LIPITOR40 PO (16:12)
[2017-02-18] MEDS ORDERED: CO Q-1050 MG PO (16:12)
[2017-02-18] MEDS ORDERED: SENTAB PO (16:13)
[2017-02-18] MEDS ORDERED: 8 HOUR650 MG PO (16:14)
[2017-02-18] MEDS ORDERED: OCEAN NAS (16:15)
[2017-02-18] MEDS ORDERED: MIRALAX POWDER1 PKT PO (16:15)
[2017-02-18] MEDS ORDERED: SPIRIVA RESPIMAT INH (16:16)
[2017-02-18] MEDS ORDERED: FLEX PO (16:16)
[2017-02-18] MEDS ORDERED: PR25 PO (16:16)
[2017-02-19 06:01] LABS: BASOPHILS 0.4 %; BASOPHILS ABSOLUTE 0.02 10/3/uL (0.0-0.16); EOSINOPHILS 4.4 %; EOSINOPHILS ABSOLUTE 0.21 10/3/uL (0.0-0.53); HEMOGLOBIN 12.5 g/dL (12.0-16.0); LYMPHOCYTES 14.7 %; MANUAL DIFF NO %; MEAN CORPUS HGB CONC 30.5 g/dL (32.0-36.0); MEAN CORPUSCULAR HEMOGLOB 26.9 pg (26.0-34.0); MEAN CORPUSCULAR VOLUME 88.2 fL (80-100); MEAN PLATELET VOLUME 11.2 fL (9.2-13.0); MONOCYTES 12.4 %; MONOCYTES ABSOLUTE 0.59 10/3/uL (0.21-1.20); NEUTROPHILS 68.1 %; NEUTROPHILS ABSOLUTE 3.25 10/3/uL (2.02-8.40); PLATELET COUNT 135 10/3/uL (150-400); RBC DISTRIBUTION WIDTH 19.3 % (12.0-16.0); RED CELL COUNT 4.65 10/6/uL (4.0-5.6); WHITE BLOOD CELLS 4.8 10/3/uL (4.5-10.5)
[2017-02-19 06:06] LABS: INTERNATIONAL NORMAL RATI 1.4 UNITS (-); PROTIME (NOT ORD) 17.3 SEC (12.0-14.5)
[2017-02-19 06:07] LABS: PARTIAL THROMBO TIME 99.2 SEC (22.5-37.2)
[2017-02-19 06:23] LABS: BUN (BLOOD UREA NITROGEN) 33 MG/DL (6-23); CALCIUM, SERUM 8.5 MG/DL (8.5-10.4); CHLORIDE, SERUM 107 MMOL/L (96-112); CO2 (CARBON DIOXIDE) 26 MMOL/L (24-34); CREATININE 1.59 MG/DL (0.55-1.02); GFR AFRICAN AMERICAN 36 ML/MIN (>=60); GFR NON AFRICAN AMERICAN 31 ML/MIN (>=60); POTASSIUM, SERUM 3.9 MMOL/L (3.5-5.3); SODIUM, SERUM 142 MMOL/L (135-148); T4 (THYROXINE) TOTAL 6.1 MCG/DL (4.5-12.0)
[2017-02-19 06:26] LABS: GLUCOSE, SERUM 91 MG/DL (60-99)
[2017-02-19 06:28] LABS: TROPONIN I 0.16 NG/ML (<0.05)
[2017-02-20 06:01] LABS: BASOPHILS 0.7 %; BASOPHILS ABSOLUTE 0.04 10/3/uL (0.0-0.16); EOSINOPHILS 3.5 %; EOSINOPHILS ABSOLUTE 0.19 10/3/uL (0.0-0.53); HEMATOCRIT 39.7 % (36.0-48.0); HEMOGLOBIN 12.1 g/dL (12.0-16.0); IMMATURE GRANULOCYTES 0.2 %; IMMATURE GRANULOCYTES ABSOLUTE 0.01 10/3/uL (0.0-0.11); LYMPHOCYTES 19.2 %; LYMPHOCYTES ABSOLUTE 1.03 10/3/uL (0.67-4.30); MANUAL DIFF NO %; MEAN CORPUS HGB CONC 30.5 g/dL (32.0-36.0); MEAN CORPUSCULAR HEMOGLOB 26.6 pg (26.0-34.0); MEAN CORPUSCULAR VOLUME 87.3 fL (80-100); MONOCYTES 11.5 %; MONOCYTES ABSOLUTE 0.62 10/3/uL (0.21-1.20); NEUTROPHILS 64.9 %; NEUTROPHILS ABSOLUTE 3.48 10/3/uL (2.02-8.40); PLATELET COUNT 146 10/3/uL (150-400); RBC DISTRIBUTION WIDTH 19.3 % (12.0-16.0); RED CELL COUNT 4.55 10/6/uL (4.0-5.6); WHITE BLOOD CELLS 5.4 10/3/uL (4.5-10.5)
[2017-02-20 06:02] LABS: INTERNATIONAL NORMAL RATI 1.4 UNITS (-); PROTIME (NOT ORD) 17.2 SEC (12.0-14.5)
[2017-02-20 06:08] LABS: ALBUMIN 3.1 G/DL (3.5-5.0); BUN (BLOOD UREA NITROGEN) 36 MG/DL (6-23); CALCIUM, SERUM 8.8 MG/DL (8.5-10.4); CHLORIDE, SERUM 105 MMOL/L (96-112); CO2 (CARBON DIOXIDE) 25 MMOL/L (24-34); CREATININE 1.81 MG/DL (0.55-1.02); GFR AFRICAN AMERICAN 31 ML/MIN (>=60); GFR NON AFRICAN AMERICAN 27 ML/MIN (>=60); GLUCOSE, SERUM 94 MG/DL (60-99); PHOSPHORUS, SERUM 3.7 MG/DL (2.5-4.5); POTASSIUM, SERUM 3.9 MMOL/L (3.5-5.3); SODIUM, SERUM 141 MMOL/L (135-148)
[2017-02-21 06:18] LABS: BASOPHILS 1.1 %; BASOPHILS ABSOLUTE 0.06 10/3/uL (0.0-0.16); EOSINOPHILS ABSOLUTE 0.21 10/3/uL (0.0-0.53); HEMATOCRIT 40.1 % (36.0-48.0); HEMOGLOBIN 12.3 g/dL (12.0-16.0); IMMATURE GRANULOCYTES 0.2 %; IMMATURE GRANULOCYTES ABSOLUTE 0.01 10/3/uL (0.0-0.11); LYMPHOCYTES 19.1 %; LYMPHOCYTES ABSOLUTE 1.01 10/3/uL (0.67-4.30); MEAN CORPUS HGB CONC 30.7 g/dL (32.0-36.0); MEAN CORPUSCULAR HEMOGLOB 26.6 pg (26.0-34.0); MEAN CORPUSCULAR VOLUME 86.6 fL (80-100); MONOCYTES 12.5 %; MONOCYTES ABSOLUTE 0.66 10/3/uL (0.21-1.20); NEUTROPHILS 63.1 %; NEUTROPHILS ABSOLUTE 3.34 10/3/uL (2.02-8.40); PLATELET COUNT 137 10/3/uL (150-400); RBC DISTRIBUTION WIDTH 19.2 % (12.0-16.0); RED CELL COUNT 4.63 10/6/uL (4.0-5.6); WHITE BLOOD CELLS 5.3 10/3/uL (4.5-10.5)
[2017-02-21 06:19] LABS: MANUAL DIFF NO %
[2017-02-21 06:24] LABS: INTERNATIONAL NORMAL RATI 1.5 UNITS (-); PROTIME (NOT ORD) 17.8 SEC (12.0-14.5)
[2017-02-21 06:28] LABS: BUN (BLOOD UREA NITROGEN) 38 MG/DL (6-23); CALCIUM, SERUM 8.8 MG/DL (8.5-10.4); CHLORIDE, SERUM 106 MMOL/L (96-112); CO2 (CARBON DIOXIDE) 27 MMOL/L (24-34); GFR AFRICAN AMERICAN 34 ML/MIN (>=60); GFR NON AFRICAN AMERICAN 29 ML/MIN (>=60); GLUCOSE, SERUM 100 MG/DL (60-99); PHOSPHORUS, SERUM 4.2 MG/DL (2.5-4.5); POTASSIUM, SERUM 3.5 MMOL/L (3.5-5.3); SODIUM, SERUM 143 MMOL/L (135-148)
[2017-02-22 06:03] LABS: BASOPHILS 0.7 %; BASOPHILS ABSOLUTE 0.04 10/3/uL (0.0-0.16); EOSINOPHILS 3.7 %; HEMATOCRIT 39.2 % (36.0-48.0); HEMOGLOBIN 12.2 g/dL (12.0-16.0); IMMATURE GRANULOCYTES 0.2 %; IMMATURE GRANULOCYTES ABSOLUTE 0.01 10/3/uL (0.0-0.11); LYMPHOCYTES 21.5 %; LYMPHOCYTES ABSOLUTE 1.17 10/3/uL (0.67-4.30); MANUAL DIFF NO %; MEAN CORPUS HGB CONC 31.1 g/dL (32.0-36.0); MEAN CORPUSCULAR HEMOGLOB 27.2 pg (26.0-34.0); MEAN CORPUSCULAR VOLUME 87.3 fL (80-100); MEAN PLATELET VOLUME 10.3 fL (9.2-13.0); MONOCYTES 12.9 %; NEUTROPHILS ABSOLUTE 3.31 10/3/uL (2.02-8.40); PLATELET COUNT 123 10/3/uL (150-400); RED CELL COUNT 4.49 10/6/uL (4.0-5.6); WHITE BLOOD CELLS 5.4 10/3/uL (4.5-10.5)
[2017-02-22 06:08] LABS: INTERNATIONAL NORMAL RATI 1.8 UNITS (-)
[2017-02-22 06:09] LABS: PROTIME (NOT ORD) 20.6 SEC (12.0-14.5)
[2017-02-22 06:18] LABS: BUN (BLOOD UREA NITROGEN) 39 MG/DL (6-23); CHLORIDE, SERUM 106 MMOL/L (96-112); CO2 (CARBON DIOXIDE) 25 MMOL/L (24-34); CREATININE 1.64 MG/DL (0.55-1.02); GFR AFRICAN AMERICAN 35 ML/MIN (>=60); GFR NON AFRICAN AMERICAN 30 ML/MIN (>=60); GLUCOSE, SERUM 83 MG/DL (60-99); POTASSIUM, SERUM 3.4 MMOL/L (3.5-5.3); SODIUM, SERUM 140 MMOL/L (135-148)
[2017-02-23 01:44] LABS: BASOPHILS 0.4 %; BASOPHILS ABSOLUTE 0.02 10/3/uL (0.0-0.16); EOSINOPHILS 3.2 %; EOSINOPHILS ABSOLUTE 0.18 10/3/uL (0.0-0.53); HEMATOCRIT 37.6 % (36.0-48.0); HEMOGLOBIN 11.6 g/dL (12.0-16.0); IMMATURE GRANULOCYTES 0.2 %; IMMATURE GRANULOCYTES ABSOLUTE 0.01 10/3/uL (0.0-0.11); LYMPHOCYTES 15.2 %; LYMPHOCYTES ABSOLUTE 0.86 10/3/uL (0.67-4.30); MEAN CORPUS HGB CONC 30.9 g/dL (32.0-36.0); MEAN CORPUSCULAR HEMOGLOB 26.4 pg (26.0-34.0); MEAN CORPUSCULAR VOLUME 85.6 fL (80-100); MEAN PLATELET VOLUME 11.3 fL (9.2-13.0); MONOCYTES 13.4 %; MONOCYTES ABSOLUTE 0.76 10/3/uL (0.21-1.20); NEUTROPHILS 67.6 %; NEUTROPHILS ABSOLUTE 3.83 10/3/uL (2.02-8.40); PLATELET COUNT 147 10/3/uL (150-400); RBC DISTRIBUTION WIDTH 18.9 % (12.0-16.0); RED CELL COUNT 4.39 10/6/uL (4.0-5.6); WHITE BLOOD CELLS 5.7 10/3/uL (4.5-10.5)
[2017-02-23 01:45] LABS: MANUAL DIFF NO %
[2017-02-23 01:51] LABS: INTERNATIONAL NORMAL RATI 2.2 UNITS (-)
[2017-02-23 01:54] LABS: PARTIAL THROMBO TIME 126.6 SEC (22.5-37.2); PROTIME (NOT ORD) 24.3 SEC (12.0-14.5)
[2017-02-23 01:57] LABS: ALBUMIN 3.1 G/DL (3.5-5.0); BUN (BLOOD UREA NITROGEN) 39 MG/DL (6-23); CALCIUM, SERUM 8.9 MG/DL (8.5-10.4); CHLORIDE, SERUM 102 MMOL/L (96-112); CO2 (CARBON DIOXIDE) 27 MMOL/L (24-34); CREATININE 1.58 MG/DL (0.55-1.02); GFR AFRICAN AMERICAN 37 ML/MIN (>=60); GFR NON AFRICAN AMERICAN 32 ML/MIN (>=60); GLUCOSE, SERUM 94 MG/DL (60-99); POTASSIUM, SERUM 3.9 MMOL/L (3.5-5.3); SODIUM, SERUM 140 MMOL/L (135-148)
[2017-02-23 11:46] LABS: BE (BASE EXCESS) -0.8 MEQ/L (0 +/- 2.5); CARBOXYHEMOGLOBIN 0.6 % (0-3); HCO3 (ACTUAL BICARBONATE) 23.3 MEQ/L (23-27); HEMOBLOGIN CONTENT 12.5 G/DL (12-16); INSTRUMENT SERIAL # 11843; METHEMOGLOBIN 0.5 % (0-3); MODE SIMV; O2 CONTENT 17.3 VOL% (18-24); OPERATOR ID 13624; PCO2 (CO2 TENSION) 37 MMHG (35-45); PO2 (O2 TENSION) 137 MMHG (79-93); PRESSURE SUPPORT 10 cm.H2O; SAMPLE Arterial; TIDAL VOLUME 500 ML; pH 7.42 (7.37-7.43)
[2017-02-23 13:57] LABS: BASOPHILS 0.3 %; BASOPHILS ABSOLUTE 0.02 10/3/uL (0.0-0.16); EOSINOPHILS ABSOLUTE 0.06 10/3/uL (0.0-0.53); HEMATOCRIT 37.7 % (36.0-48.0); HEMOGLOBIN 11.6 g/dL (12.0-16.0); IMMATURE GRANULOCYTES 0.2 %; IMMATURE GRANULOCYTES ABSOLUTE 0.01 10/3/uL (0.0-0.11); LYMPHOCYTES 12.5 %; LYMPHOCYTES ABSOLUTE 0.74 10/3/uL (0.67-4.30); MEAN CORPUS HGB CONC 30.8 g/dL (32.0-36.0); MEAN CORPUSCULAR HEMOGLOB 26.4 pg (26.0-34.0); MEAN CORPUSCULAR VOLUME 85.9 fL (80-100); MEAN PLATELET VOLUME 10.7 fL (9.2-13.0); MONOCYTES 12.5 %; MONOCYTES ABSOLUTE 0.74 10/3/uL (0.21-1.20); NEUTROPHILS 73.5 %; NEUTROPHILS ABSOLUTE 4.37 10/3/uL (2.02-8.40); PLATELET COUNT 125 10/3/uL (150-400); RBC DISTRIBUTION WIDTH 18.8 % (12.0-16.0); RED CELL COUNT 4.39 10/6/uL (4.0-5.6); WHITE BLOOD CELLS 5.9 10/3/uL (4.5-10.5)
[2017-02-23 13:58] LABS: MANUAL DIFF NO %
[2017-02-23 14:20] LABS: A/G RATIO 0.8 (0.7-1.9); ALBUMIN 2.8 G/DL (3.5-5.0); ALKALINE PHOSPHATASE 89 U/L (45-117); BUN (BLOOD UREA NITROGEN) 40 MG/DL (6-23); CALCIUM, SERUM 9.2 MG/DL (8.5-10.4); CHLORIDE, SERUM 103 MMOL/L (96-112); CO2 (CARBON DIOXIDE) 27 MMOL/L (24-34); CREATININE 1.67 MG/DL (0.55-1.02); GFR AFRICAN AMERICAN 34 ML/MIN (>=60); GFR NON AFRICAN AMERICAN 30 ML/MIN (>=60); GLOBULIN 3.5 G/DL (2.5-4.1); GLUCOSE, SERUM 121 MG/DL (60-99); POTASSIUM, SERUM 3.4 MMOL/L (3.5-5.3); SGOT(AST) 24 U/L (5-40); SGPT(ALT) 17 U/L (5-65); SODIUM, SERUM 139 MMOL/L (135-148); TOTAL BILIRUBIN 0.8 MG/DL (0-1.2); TOTAL PROTEIN 6.3 G/DL (6.0-8.5)
[2017-02-23 18:21] LABS: CARBOXYHEMOGLOBIN 0.6 % (0-3); HCO3 (ACTUAL BICARBONATE) 27.5 MEQ/L (23-27); HEMOBLOGIN CONTENT 13.3 G/DL (12-16); INSTRUMENT SERIAL # 11843; METHEMOGLOBIN 0.5 % (0-3); MODE CMV; O2 CONTENT 15.9 VOL% (18-24); OPERATOR ID 13624; PCO2 (CO2 TENSION) 42 MMHG (35-45); PO2 (O2 TENSION) 54 MMHG (79-93); SAMPLE Arterial; TIDAL VOLUME 500 ML; pH 7.44 (7.37-7.43)
[2017-02-23 22:40] LABS: ALBUMIN 3.1 G/DL (3.5-5.0); BUN (BLOOD UREA NITROGEN) 41 MG/DL (6-23); CALCIUM, SERUM 9.4 MG/DL (8.5-10.4); CHLORIDE, SERUM 101 MMOL/L (96-112); CO2 (CARBON DIOXIDE) 25 MMOL/L (24-34); CREATININE 1.78 MG/DL (0.55-1.02); GFR AFRICAN AMERICAN 32 ML/MIN (>=60); GFR NON AFRICAN AMERICAN 27 ML/MIN (>=60); PHOSPHORUS, SERUM 3.4 MG/DL (2.5-4.5); SODIUM, SERUM 138 MMOL/L (135-148)
[2017-02-23 22:43] LABS: GLUCOSE, SERUM 87 MG/DL (60-99); POTASSIUM, SERUM 4.6 MMOL/L (3.5-5.3)
[2017-02-24 03:42] LABS: HEMATOCRIT 37.1 % (36.0-48.0); HEMOGLOBIN 11.8 g/dL (12.0-16.0); MEAN CORPUS HGB CONC 31.8 g/dL (32.0-36.0); MEAN CORPUSCULAR HEMOGLOB 26.6 pg (26.0-34.0); MEAN CORPUSCULAR VOLUME 83.7 fL (80-100); MEAN PLATELET VOLUME 11.5 fL (9.2-13.0); PLATELET COUNT 138 10/3/uL (150-400); RBC DISTRIBUTION WIDTH 18.5 % (12.0-16.0); RED CELL COUNT 4.43 10/6/uL (4.0-5.6); WHITE BLOOD CELLS 6.4 10/3/uL (4.5-10.5)
[2017-02-24 03:43] LABS: MANUAL DIFF YES %
[2017-02-24 03:49] LABS: INTERNATIONAL NORMAL RATI 2.8 UNITS (-); PROTIME (NOT ORD) 29.1 SEC (12.0-14.5)
[2017-02-24 03:58] LABS: ALBUMIN 2.9 G/DL (3.5-5.0); ALKALINE PHOSPHATASE 94 U/L (45-117); BUN (BLOOD UREA NITROGEN) 40 MG/DL (6-23); CALCIUM, SERUM 9.3 MG/DL (8.5-10.4); CHLORIDE, SERUM 101 MMOL/L (96-112); CO2 (CARBON DIOXIDE) 25 MMOL/L (24-34); GFR AFRICAN AMERICAN 31 ML/MIN (>=60); GFR NON AFRICAN AMERICAN 27 ML/MIN (>=60); GLUCOSE, SERUM 89 MG/DL (60-99); INDIRECT BILIRUBIN(NOT ORDER) 0.6 MG/DL (0.1-0.9); PHOSPHORUS, SERUM 2.5 MG/DL (2.5-4.5); POTASSIUM, SERUM 3.9 MMOL/L (3.5-5.3); SGOT(AST) 23 U/L (5-40); SGPT(ALT) 15 U/L (5-65); SODIUM, SERUM 138 MMOL/L (135-148); TOTAL BILIRUBIN 1.2 MG/DL (0-1.2); TOTAL PROTEIN 6.3 G/DL (6.0-8.5)
[2017-02-24 03:59] LABS: DIRECT BILIRUBIN 0.6 MG/DL (0.0-0.4)
[2017-02-24 04:03] LABS: ANISOCYTOSIS 1+ (5-10/OIF) (0-5/OIF); BAND NEUTROPHILS 2 %; ELLIPTOCYTES 1+ (3-10/OIF) (0-2/OIF); EOSINOPHILS 2 %; EOSINOPHILS ABSOLUTE (CALC) 0.13 10/3/uL (0.0-0.53); LYMPHOCYTES 6 %; LYMPHOCYTES ABSOLUTE (CALC) 0.38 10/3/uL (0.67-4.30); MONOCYTES 10 %; MONOCYTES ABSOLUTE (CALC) 0.64 10/3/uL (0.21-1.20); NEUTROPHILS ABSOLUTE (CALC) 5.25 10/3/uL (2.02-8.40); PLATELET ESTIMATE SLT DEC (ADEQUATE); SEGMENTED NEUTROPHIL (0) 80 %; TEARDROP SHAPED RBCS FEW (3-10/OIF); TOTAL NUCLEATED CELLS 100
[2017-02-24 05:10] LABS: BE (BASE EXCESS) 3.6 MEQ/L (0 +/- 2.5); CARBOXYHEMOGLOBIN 0.4 % (0-3); HCO3 (ACTUAL BICARBONATE) 24.3 MEQ/L (23-27); HEMOBLOGIN CONTENT 12.1 G/DL (12-16); INSTRUMENT SERIAL # 11843; METHEMOGLOBIN 0.4 % (0-3); MODE PCV; O2 CONTENT 16.2 VOL% (18-24); PCO2 (CO2 TENSION) 26 MMHG (35-45); PO2 (O2 TENSION) 81 MMHG (79-93); PRESSURE SUPPORT 12 cm.H2O; SAMPLE Arterial; pH 7.59 (7.37-7.43)
[2017-02-24 06:15] LABS: BE (BASE EXCESS) 0.6 MEQ/L (0 +/- 2.5); CARBOXYHEMOGLOBIN 0.7 % (0-3); HEMOBLOGIN CONTENT 12.2 G/DL (12-16); INSTRUMENT SERIAL # 11843; METHEMOGLOBIN 0.3 % (0-3); MODE CMV; O2 CONTENT 15.8 VOL% (18-24); PCO2 (CO2 TENSION) 30 MMHG (35-45); PO2 (O2 TENSION) 69 MMHG (79-93); SAMPLE Arterial; TIDAL VOLUME 420 ML
[2017-02-24 09:15] LABS: ALLENS TEST Pos; BE (BASE EXCESS) 0.6 MEQ/L (0 +/- 2.5); CARBOXYHEMOGLOBIN 0.4 % (0-3); HCO3 (ACTUAL BICARBONATE) 23.9 MEQ/L (23-27); HEMOBLOGIN CONTENT 12.2 G/DL (12-16); INSTRUMENT SERIAL # 11843; METHEMOGLOBIN 0.5 % (0-3); MODE CMV; O2 CONTENT 15.7 VOL% (18-24); OPERATOR ID 13715; PCO2 (CO2 TENSION) 34 MMHG (35-45); PO2 (O2 TENSION) 67 MMHG (79-93); SAMPLE Arterial; TIDAL VOLUME 420 ML; pH 7.47 (7.37-7.43)
[2017-02-24 10:14] LABS: PROCALCITONIN 0.18 ng/mL (<0.5)
[2017-02-24 10:34] LABS: ALBUMIN 2.7 G/DL (3.5-5.0); BUN (BLOOD UREA NITROGEN) 41 MG/DL (6-23); CALCIUM, SERUM 8.8 MG/DL (8.5-10.4); CHLORIDE, SERUM 102 MMOL/L (96-112); CO2 (CARBON DIOXIDE) 25 MMOL/L (24-34); CREATININE 1.94 MG/DL (0.55-1.02); GFR AFRICAN AMERICAN 29 ML/MIN (>=60); GFR NON AFRICAN AMERICAN 25 ML/MIN (>=60); GLUCOSE, SERUM 90 MG/DL (60-99); PHOSPHORUS, SERUM 3.4 MG/DL (2.5-4.5); POTASSIUM, SERUM 4.5 MMOL/L (3.5-5.3); SODIUM, SERUM 136 MMOL/L (135-148)
[2017-02-24 11:40] LABS: PROCALCITONIN 0.23 ng/mL (<0.5)
[2017-02-24 17:25] LABS: ALBUMIN 2.9 G/DL (3.5-5.0); BUN (BLOOD UREA NITROGEN) 43 MG/DL (6-23); CALCIUM, SERUM 9.1 MG/DL (8.5-10.4); CHLORIDE, SERUM 101 MMOL/L (96-112); CO2 (CARBON DIOXIDE) 25 MMOL/L (24-34); CREATININE 2.01 MG/DL (0.55-1.02); GFR AFRICAN AMERICAN 27 ML/MIN (>=60); GFR NON AFRICAN AMERICAN 24 ML/MIN (>=60); GLUCOSE, SERUM 96 MG/DL (60-99); PHOSPHORUS, SERUM 4.1 MG/DL (2.5-4.5); POTASSIUM, SERUM 4.1 MMOL/L (3.5-5.3); SODIUM, SERUM 135 MMOL/L (135-148)
[2017-02-25 04:01] LABS: ALLENS TEST Pos; BE (BASE EXCESS) -0.7 MEQ/L (0 +/- 2.5); CARBOXYHEMOGLOBIN 0.6 % (0-3); HCO3 (ACTUAL BICARBONATE) 23.4 MEQ/L (23-27); HEMOBLOGIN CONTENT 11.9 G/DL (12-16); INSTRUMENT SERIAL # 11843; METHEMOGLOBIN 0.4 % (0-3); MODE CMV; O2 CONTENT 15.3 VOL% (18-24); OPERATOR ID 23712; PCO2 (CO2 TENSION) 37 MMHG (35-45); PO2 (O2 TENSION) 66 MMHG (79-93); SAMPLE Arterial; TIDAL VOLUME 420 ML; pH 7.42 (7.37-7.43)
[2017-02-25 04:16] LABS: BASOPHILS 0.1 %; BASOPHILS ABSOLUTE 0.01 10/3/uL (0.0-0.16); EOSINOPHILS 0.7 %; EOSINOPHILS ABSOLUTE 0.06 10/3/uL (0.0-0.53); HEMATOCRIT 35.3 % (36.0-48.0); IMMATURE GRANULOCYTES 0.1 %; IMMATURE GRANULOCYTES ABSOLUTE 0.01 10/3/uL (0.0-0.11); LYMPHOCYTES 7.9 %; LYMPHOCYTES ABSOLUTE 0.65 10/3/uL (0.67-4.30); MANUAL DIFF NO %; MEAN CORPUS HGB CONC 31.2 g/dL (32.0-36.0); MEAN CORPUSCULAR HEMOGLOB 26.8 pg (26.0-34.0); MEAN CORPUSCULAR VOLUME 86.1 fL (80-100); MEAN PLATELET VOLUME 10.6 fL (9.2-13.0); MONOCYTES 11.9 %; MONOCYTES ABSOLUTE 0.98 10/3/uL (0.21-1.20); NEUTROPHILS 79.3 %; NEUTROPHILS ABSOLUTE 6.53 10/3/uL (2.02-8.40); PLATELET COUNT 121 10/3/uL (150-400); RBC DISTRIBUTION WIDTH 18.8 % (12.0-16.0); WHITE BLOOD CELLS 8.2 10/3/uL (4.5-10.5)
[2017-02-25 04:17] LABS: INTERNATIONAL NORMAL RATI 3.9 UNITS (-)
[2017-02-25 04:18] LABS: PROTIME (NOT ORD) 38.1 SEC (12.0-14.5)
[2017-02-25 04:33] LABS: BUN (BLOOD UREA NITROGEN) 46 MG/DL (6-23); CALCIUM, SERUM 8.9 MG/DL (8.5-10.4); CHLORIDE, SERUM 99 MMOL/L (96-112); CO2 (CARBON DIOXIDE) 26 MMOL/L (24-34); CREATININE 2.27 MG/DL (0.55-1.02); GFR AFRICAN AMERICAN 24 ML/MIN (>=60); GFR NON AFRICAN AMERICAN 20 ML/MIN (>=60); GLUCOSE, SERUM 103 MG/DL (60-99); PHOSPHORUS, SERUM 4.5 MG/DL (2.5-4.5); POTASSIUM, SERUM 3.7 MMOL/L (3.5-5.3); SODIUM, SERUM 137 MMOL/L (135-148)
[2017-02-25 18:50] LABS: POTASSIUM, SERUM 3.1 MMOL/L (3.5-5.3)
[2017-02-26 04:59] LABS: BASOPHILS 0.1 %; BASOPHILS ABSOLUTE 0.01 10/3/uL (0.0-0.16); EOSINOPHILS 0.7 %; EOSINOPHILS ABSOLUTE 0.06 10/3/uL (0.0-0.53); HEMATOCRIT 35.2 % (36.0-48.0); HEMOGLOBIN 10.9 g/dL (12.0-16.0); IMMATURE GRANULOCYTES 0.2 %; IMMATURE GRANULOCYTES ABSOLUTE 0.02 10/3/uL (0.0-0.11); LYMPHOCYTES 5.3 %; LYMPHOCYTES ABSOLUTE 0.44 10/3/uL (0.67-4.30); MEAN CORPUSCULAR VOLUME 87.1 fL (80-100); MEAN PLATELET VOLUME 10.8 fL (9.2-13.0); MONOCYTES 13.2 %; NEUTROPHILS 80.5 %; NEUTROPHILS ABSOLUTE 6.72 10/3/uL (2.02-8.40); PLATELET COUNT 111 10/3/uL (150-400); RBC DISTRIBUTION WIDTH 18.3 % (12.0-16.0); RED CELL COUNT 4.04 10/6/uL (4.0-5.6); WHITE BLOOD CELLS 8.4 10/3/uL (4.5-10.5)
[2017-02-26 05:02] LABS: MANUAL DIFF NO %
[2017-02-26 05:05] LABS: INTERNATIONAL NORMAL RATI 3.3 UNITS (-); PROTIME (NOT ORD) 33.5 SEC (12.0-14.5)
[2017-02-26 05:10] LABS: BUN (BLOOD UREA NITROGEN) 50 MG/DL (6-23); CALCIUM, SERUM 8.6 MG/DL (8.5-10.4); CHLORIDE, SERUM 97 MMOL/L (96-112); CO2 (CARBON DIOXIDE) 28 MMOL/L (24-34); CREATININE 2.15 MG/DL (0.55-1.02); GFR AFRICAN AMERICAN 25 ML/MIN (>=60); GFR NON AFRICAN AMERICAN 22 ML/MIN (>=60); GLUCOSE, SERUM 119 MG/DL (60-99); PHOSPHORUS, SERUM 4.6 MG/DL (2.5-4.5); POTASSIUM, SERUM 3.2 MMOL/L (3.5-5.3); SODIUM, SERUM 136 MMOL/L (135-148)
[2017-02-26 12:17] LABS: POTASSIUM, SERUM 3.7 MMOL/L (3.5-5.3)
[2017-02-26 14:35] LABS: ASCORBIC ACID (UR NOT ORDER) 40 (NEG); BILIRUBIN, URINE NEGATIVE (NEG); KETONE, URINE NEGATIVE (NEG); LEUKOCYTE ESTERASE(NOT OR SMALL (NEG); WBC (NOT ORDERED) (RFLEX) 25 (0-5)
[2017-02-26 19:12] LABS: BUN (BLOOD UREA NITROGEN) 53 MG/DL (6-23); CALCIUM, SERUM 8.9 MG/DL (8.5-10.4); CHLORIDE, SERUM 100 MMOL/L (96-112); CO2 (CARBON DIOXIDE) 27 MMOL/L (24-34); CREATININE 2.24 MG/DL (0.55-1.02); GFR AFRICAN AMERICAN 24 ML/MIN (>=60); GFR NON AFRICAN AMERICAN 21 ML/MIN (>=60); GLUCOSE, SERUM 137 MG/DL (60-99); POTASSIUM, SERUM 3.7 MMOL/L (3.5-5.3); SODIUM, SERUM 137 MMOL/L (135-148)
[2017-02-27 04:43] LABS: BASOPHILS 0.1 %; BASOPHILS ABSOLUTE 0.01 10/3/uL (0.0-0.16); EOSINOPHILS 0.6 %; EOSINOPHILS ABSOLUTE 0.04 10/3/uL (0.0-0.53); HEMATOCRIT 34.5 % (36.0-48.0); HEMOGLOBIN 10.8 g/dL (12.0-16.0); IMMATURE GRANULOCYTES 0.1 %; IMMATURE GRANULOCYTES ABSOLUTE 0.01 10/3/uL (0.0-0.11); LYMPHOCYTES 5.4 %; LYMPHOCYTES ABSOLUTE 0.38 10/3/uL (0.67-4.30); MEAN CORPUS HGB CONC 31.3 g/dL (32.0-36.0); MEAN CORPUSCULAR HEMOGLOB 27.1 pg (26.0-34.0); MEAN CORPUSCULAR VOLUME 86.5 fL (80-100); MEAN PLATELET VOLUME 10.3 fL (9.2-13.0); MONOCYTES ABSOLUTE 0.77 10/3/uL (0.21-1.20); NEUTROPHILS 82.8 %; NEUTROPHILS ABSOLUTE 5.79 10/3/uL (2.02-8.40); PLATELET COUNT 103 10/3/uL (150-400); RBC DISTRIBUTION WIDTH 18.3 % (12.0-16.0); RED CELL COUNT 3.99 10/6/uL (4.0-5.6)
[2017-02-27 04:44] LABS: MANUAL DIFF NO %
[2017-02-27 04:52] LABS: INTERNATIONAL NORMAL RATI 2.9 UNITS (-); PROTIME (NOT ORD) 30.2 SEC (12.0-14.5)
[2017-02-27 04:57] LABS: ALBUMIN 3.8 G/DL (3.5-5.0); BUN (BLOOD UREA NITROGEN) 58 MG/DL (6-23); CALCIUM, SERUM 9.4 MG/DL (8.5-10.4); CHLORIDE, SERUM 97 MMOL/L (96-112); CO2 (CARBON DIOXIDE) 30 MMOL/L (24-34); CREATININE 2.16 MG/DL (0.55-1.02); GFR AFRICAN AMERICAN 25 ML/MIN (>=60); GFR NON AFRICAN AMERICAN 22 ML/MIN (>=60); GLUCOSE, SERUM 111 MG/DL (60-99); PHOSPHORUS, SERUM 3.8 MG/DL (2.5-4.5); POTASSIUM, SERUM 3.3 MMOL/L (3.5-5.3); SODIUM, SERUM 135 MMOL/L (135-148)
[2017-02-27 17:03] LABS: ALLENS TEST Pos; BE (BASE EXCESS) 2.9 MEQ/L (0 +/- 2.5); CARBOXYHEMOGLOBIN 0.7 % (0-3); HCO3 (ACTUAL BICARBONATE) 28.7 MEQ/L (23-27); HEMOBLOGIN CONTENT 12.3 G/DL (12-16); INSTRUMENT SERIAL # 11843; METHEMOGLOBIN 0.5 % (0-3); MODE CMV; O2 CONTENT 15.7 VOL% (18-24); OPERATOR ID 13715; PCO2 (CO2 TENSION) 49 MMHG (35-45); PO2 (O2 TENSION) 66 MMHG (79-93); SAMPLE Arterial; TIDAL VOLUME 420 ML; pH 7.39 (7.37-7.43)
[2017-02-28 04:27] LABS: BASOPHILS 0 %; EOSINOPHILS 0 %; HEMATOCRIT 34.7 % (36.0-48.0); HEMOGLOBIN 10.7 g/dL (12.0-16.0); LYMPHOCYTES 2.9 %; LYMPHOCYTES ABSOLUTE 0.13 10/3/uL (0.67-4.30); MEAN CORPUS HGB CONC 30.8 g/dL (32.0-36.0); MEAN CORPUSCULAR HEMOGLOB 26.6 pg (26.0-34.0); MEAN CORPUSCULAR VOLUME 86.3 fL (80-100); MEAN PLATELET VOLUME 10.5 fL (9.2-13.0); MONOCYTES 3.5 %; MONOCYTES ABSOLUTE 0.16 10/3/uL (0.21-1.20); NEUTROPHILS 93.6 %; NEUTROPHILS ABSOLUTE 4.22 10/3/uL (2.02-8.40); PLATELET COUNT 114 10/3/uL (150-400); RBC DISTRIBUTION WIDTH 18.2 % (12.0-16.0); RED CELL COUNT 4.02 10/6/uL (4.0-5.6); WHITE BLOOD CELLS 4.5 10/3/uL (4.5-10.5)
[2017-02-28 04:28] LABS: MANUAL DIFF NO %
[2017-02-28 04:45] LABS: ALBUMIN 3.5 G/DL (3.5-5.0); ALKALINE PHOSPHATASE 89 U/L (45-117); CALCIUM, SERUM 9.6 MG/DL (8.5-10.4); CHLORIDE, SERUM 97 MMOL/L (96-112); CO2 (CARBON DIOXIDE) 29 MMOL/L (24-34); CREATININE 1.95 MG/DL (0.55-1.02); GFR AFRICAN AMERICAN 28 ML/MIN (>=60); GFR NON AFRICAN AMERICAN 25 ML/MIN (>=60); GLOBULIN 3.5 G/DL (2.5-4.1); PHOSPHORUS, SERUM 4.2 MG/DL (2.5-4.5); POTASSIUM, SERUM 3.3 MMOL/L (3.5-5.3); SGOT(AST) 16 U/L (5-40); SGPT(ALT) 15 U/L (5-65); SODIUM, SERUM 137 MMOL/L (135-148); TOTAL BILIRUBIN 0.9 MG/DL (0-1.2)
[2017-02-28 04:46] LABS: BUN (BLOOD UREA NITROGEN) 69 MG/DL (6-23); GLUCOSE, SERUM 190 MG/DL (60-99); INTERNATIONAL NORMAL RATI 2.9 UNITS (-); PROTIME (NOT ORD) 30.1 SEC (12.0-14.5)
[2017-02-28 09:50] LABS: ALLENS TEST Pos; BE (BASE EXCESS) 1.8 MEQ/L (0 +/- 2.5); CARBOXYHEMOGLOBIN 0.4 % (0-3); HCO3 (ACTUAL BICARBONATE) 26.2 MEQ/L (23-27); INSTRUMENT SERIAL # 11843; METHEMOGLOBIN 0.4 % (0-3); MODE cpap; O2 CONTENT 15.9 VOL% (18-24); PCO2 (CO2 TENSION) 40 MMHG (35-45); PO2 (O2 TENSION) 76 MMHG (79-93); PRESSURE SUPPORT 10 cm.H2O; SAMPLE Arterial; pH 7.43 (7.37-7.43)
[2017-02-28 23:00] LABS: BUN (BLOOD UREA NITROGEN) 81 MG/DL (6-23); CALCIUM, SERUM 9.4 MG/DL (8.5-10.4); CHLORIDE, SERUM 98 MMOL/L (96-112); CO2 (CARBON DIOXIDE) 28 MMOL/L (24-34); CREATININE 1.96 MG/DL (0.55-1.02); GFR AFRICAN AMERICAN 28 ML/MIN (>=60); GFR NON AFRICAN AMERICAN 24 ML/MIN (>=60); GLUCOSE, SERUM 168 MG/DL (60-99); POTASSIUM, SERUM 3.6 MMOL/L (3.5-5.3); SODIUM, SERUM 140 MMOL/L (135-148)
[2017-03-01 06:05] LABS: BASOPHILS 0 %; EOSINOPHILS 0 %; HEMATOCRIT 35.2 % (36.0-48.0); HEMOGLOBIN 10.8 g/dL (12.0-16.0); IMMATURE GRANULOCYTES 0.2 %; IMMATURE GRANULOCYTES ABSOLUTE 0.01 10/3/uL (0.0-0.11); LYMPHOCYTES 3.3 %; LYMPHOCYTES ABSOLUTE 0.15 10/3/uL (0.67-4.30); MANUAL DIFF NO %; MEAN CORPUS HGB CONC 30.7 g/dL (32.0-36.0); MEAN CORPUSCULAR HEMOGLOB 26.4 pg (26.0-34.0); MEAN CORPUSCULAR VOLUME 86.1 fL (80-100); MEAN PLATELET VOLUME 10.6 fL (9.2-13.0); MONOCYTES ABSOLUTE 0.27 10/3/uL (0.21-1.20); NEUTROPHILS 90.5 %; PLATELET COUNT 144 10/3/uL (150-400); RBC DISTRIBUTION WIDTH 18.3 % (12.0-16.0); RED CELL COUNT 4.09 10/6/uL (4.0-5.6); WHITE BLOOD CELLS 4.5 10/3/uL (4.5-10.5)
[2017-03-01 06:10] LABS: INTERNATIONAL NORMAL RATI 2.8 UNITS (-); PROTIME (NOT ORD) 29.4 SEC (12.0-14.5)
[2017-03-01 06:15] LABS: ALBUMIN 3.7 G/DL (3.5-5.0); CALCIUM, SERUM 9.3 MG/DL (8.5-10.4); CHLORIDE, SERUM 98 MMOL/L (96-112); CO2 (CARBON DIOXIDE) 28 MMOL/L (24-34); CREATININE 1.96 MG/DL (0.55-1.02); GFR AFRICAN AMERICAN 28 ML/MIN (>=60); GFR NON AFRICAN AMERICAN 24 ML/MIN (>=60); PHOSPHORUS, SERUM 3.4 MG/DL (2.5-4.5); SODIUM, SERUM 139 MMOL/L (135-148)
[2017-03-01 06:17] LABS: BUN (BLOOD UREA NITROGEN) 88 MG/DL (6-23); GLUCOSE, SERUM 205 MG/DL (60-99)
[2017-03-01 14:31] LABS: CALCIUM, SERUM 9.7 MG/DL (8.5-10.4); CHLORIDE, SERUM 99 MMOL/L (96-112); CO2 (CARBON DIOXIDE) 29 MMOL/L (24-34); CREATININE 1.91 MG/DL (0.55-1.02); GFR AFRICAN AMERICAN 29 ML/MIN (>=60); GFR NON AFRICAN AMERICAN 25 ML/MIN (>=60); GLUCOSE, SERUM 184 MG/DL (60-99); POTASSIUM, SERUM 3.9 MMOL/L (3.5-5.3); SODIUM, SERUM 139 MMOL/L (135-148)
[2017-03-01 14:32] LABS: BUN (BLOOD UREA NITROGEN) 95 MG/DL (6-23)
[2017-03-01 21:39] LABS: ASCORBIC ACID (UR NOT ORDER) 40 (NEG); BILIRUBIN, URINE NEGATIVE (NEG); KETONE, URINE NEGATIVE (NEG); LEUKOCYTE ESTERASE(NOT OR SMALL (NEG)
[2017-03-01 21:40] LABS: WBC (NOT ORDERED) (RFLEX) 5 (0-5)
[2017-03-01 23:03] LABS: HEMATOCRIT 33.6 % (36.0-48.0); HEMOGLOBIN 10.4 g/dL (12.0-16.0)
[2017-03-01 23:20] LABS: BUN (BLOOD UREA NITROGEN) 97 MG/DL (6-23); CALCIUM, SERUM 9.6 MG/DL (8.5-10.4); CHLORIDE, SERUM 97 MMOL/L (96-112); CO2 (CARBON DIOXIDE) 30 MMOL/L (24-34); GFR AFRICAN AMERICAN 31 ML/MIN (>=60); GFR NON AFRICAN AMERICAN 27 ML/MIN (>=60); GLUCOSE, SERUM 108 MG/DL (60-99); POTASSIUM, SERUM 3.8 MMOL/L (3.5-5.3); SODIUM, SERUM 138 MMOL/L (135-148)
[2017-03-02 03:56] LABS: BASOPHILS 0 %; EOSINOPHILS 0 %; HEMATOCRIT 35.8 % (36.0-48.0); LYMPHOCYTES 7.3 %; LYMPHOCYTES ABSOLUTE 0.56 10/3/uL (0.67-4.30); MEAN CORPUS HGB CONC 30.7 g/dL (32.0-36.0); MEAN CORPUSCULAR HEMOGLOB 26.7 pg (26.0-34.0); MEAN CORPUSCULAR VOLUME 86.9 fL (80-100); MEAN PLATELET VOLUME 10.4 fL (9.2-13.0); MONOCYTES 14.3 %; NEUTROPHILS 78.4 %; NEUTROPHILS ABSOLUTE 6.05 10/3/uL (2.02-8.40); PLATELET COUNT 161 10/3/uL (150-400); RBC DISTRIBUTION WIDTH 17.9 % (12.0-16.0); RED CELL COUNT 4.12 10/6/uL (4.0-5.6)
[2017-03-02 03:57] LABS: MANUAL DIFF NO %; WHITE BLOOD CELLS 7.7 10/3/uL (4.5-10.5)
[2017-03-02 04:02] LABS: INTERNATIONAL NORMAL RATI 2.4 UNITS (-); PROTIME (NOT ORD) 26.3 SEC (12.0-14.5)
[2017-03-02 04:11] LABS: BUN (BLOOD UREA NITROGEN) 98 MG/DL (6-23); CHLORIDE, SERUM 97 MMOL/L (96-112); CO2 (CARBON DIOXIDE) 31 MMOL/L (24-34); CREATININE 1.84 MG/DL (0.55-1.02); GFR AFRICAN AMERICAN 31 ML/MIN (>=60); GFR NON AFRICAN AMERICAN 26 ML/MIN (>=60); GLUCOSE, SERUM 123 MG/DL (60-99); POTASSIUM, SERUM 4.2 MMOL/L (3.5-5.3); SODIUM, SERUM 137 MMOL/L (135-148)
[2017-03-02 06:18] LABS: ALLENS TEST Pos; CARBOXYHEMOGLOBIN 0.5 % (0-3); DEVICE HFNC; HCO3 (ACTUAL BICARBONATE) 30.4 MEQ/L (23-27); HEMOBLOGIN CONTENT 11.3 G/DL (12-16); INSTRUMENT SERIAL # 11843; METHEMOGLOBIN 0.2 % (0-3); O2 CONTENT 14.9 VOL% (18-24); OPERATOR ID 16469; PCO2 (CO2 TENSION) 49 MMHG (35-45); PO2 (O2 TENSION) 77 MMHG (79-93); SAMPLE Arterial; pH 7.42 (7.37-7.43)
[2017-03-02 11:04] LABS: CREATININE, URINE 19.2 MG/DL
[2017-03-03 04:05] LABS: BASOPHILS 0 %; EOSINOPHILS 0.9 %; EOSINOPHILS ABSOLUTE 0.06 10/3/uL (0.0-0.53); HEMATOCRIT 34.9 % (36.0-48.0); HEMOGLOBIN 10.8 g/dL (12.0-16.0); IMMATURE GRANULOCYTES 0.3 %; IMMATURE GRANULOCYTES ABSOLUTE 0.02 10/3/uL (0.0-0.11); LYMPHOCYTES 12.1 %; LYMPHOCYTES ABSOLUTE 0.85 10/3/uL (0.67-4.30); MANUAL DIFF NO %; MEAN CORPUS HGB CONC 30.9 g/dL (32.0-36.0); MEAN CORPUSCULAR HEMOGLOB 26.6 pg (26.0-34.0); MEAN PLATELET VOLUME 10.3 fL (9.2-13.0); MONOCYTES 14.8 %; MONOCYTES ABSOLUTE 1.04 10/3/uL (0.21-1.20); NEUTROPHILS 71.9 %; NEUTROPHILS ABSOLUTE 5.06 10/3/uL (2.02-8.40); PLATELET COUNT 155 10/3/uL (150-400); RBC DISTRIBUTION WIDTH 17.7 % (12.0-16.0); RED CELL COUNT 4.06 10/6/uL (4.0-5.6)
[2017-03-03 04:10] LABS: INTERNATIONAL NORMAL RATI 2.4 UNITS (-); PROTIME (NOT ORD) 25.6 SEC (12.0-14.5)
[2017-03-03 04:18] LABS: A/G RATIO 1.4 (0.7-1.9); ALBUMIN 4.2 G/DL (3.5-5.0); BUN (BLOOD UREA NITROGEN) 99 MG/DL (6-23); CHLORIDE, SERUM 95 MMOL/L (96-112); CO2 (CARBON DIOXIDE) 34 MMOL/L (24-34); CREATININE 1.84 MG/DL (0.55-1.02); GFR AFRICAN AMERICAN 31 ML/MIN (>=60); GFR NON AFRICAN AMERICAN 26 ML/MIN (>=60); GLOBULIN 2.9 G/DL (2.5-4.1); POTASSIUM, SERUM 4.3 MMOL/L (3.5-5.3); SGOT(AST) 27 U/L (5-40); SGPT(ALT) 17 U/L (5-65); SODIUM, SERUM 138 MMOL/L (135-148); TOTAL PROTEIN 7.1 G/DL (6.0-8.5)
[2017-03-03 04:20] LABS: ALKALINE PHOSPHATASE 74 U/L (45-117); GLUCOSE, SERUM 92 MG/DL (60-99)
[2017-03-03 04:34] LABS: PROCALCITONIN 0.11 ng/mL (<0.5)
[2017-03-04 04:13] LABS: BASOPHILS 0 %; EOSINOPHILS ABSOLUTE 0.14 10/3/uL (0.0-0.53); HEMATOCRIT 33.6 % (36.0-48.0); HEMOGLOBIN 10.5 g/dL (12.0-16.0); IMMATURE GRANULOCYTES 0.1 %; IMMATURE GRANULOCYTES ABSOLUTE 0.01 10/3/uL (0.0-0.11); LYMPHOCYTES 10.2 %; MEAN CORPUS HGB CONC 31.3 g/dL (32.0-36.0); MEAN CORPUSCULAR HEMOGLOB 26.4 pg (26.0-34.0); MEAN CORPUSCULAR VOLUME 84.6 fL (80-100); MEAN PLATELET VOLUME 10.4 fL (9.2-13.0); MONOCYTES 10.2 %; NEUTROPHILS 77.5 %; NEUTROPHILS ABSOLUTE 5.29 10/3/uL (2.02-8.40); PLATELET COUNT 151 10/3/uL (150-400); RBC DISTRIBUTION WIDTH 17.5 % (12.0-16.0); RED CELL COUNT 3.97 10/6/uL (4.0-5.6); WHITE BLOOD CELLS 6.8 10/3/uL (4.5-10.5)
[2017-03-04 04:14] LABS: MANUAL DIFF NO %
[2017-03-04 04:24] LABS: INTERNATIONAL NORMAL RATI 2.3 UNITS (-); PROTIME (NOT ORD) 25.3 SEC (12.0-14.5)
[2017-03-04 04:37] LABS: CALCIUM, SERUM 9.4 MG/DL (8.5-10.4); CHLORIDE, SERUM 95 MMOL/L (96-112); CO2 (CARBON DIOXIDE) 32 MMOL/L (24-34); GFR AFRICAN AMERICAN 34 ML/MIN (>=60); GFR NON AFRICAN AMERICAN 29 ML/MIN (>=60); GLUCOSE, SERUM 78 MG/DL (60-99); SODIUM, SERUM 138 MMOL/L (135-148)
[2017-03-04 04:38] LABS: BUN (BLOOD UREA NITROGEN) 105 MG/DL (6-23); POTASSIUM, SERUM 3.4 MMOL/L (3.5-5.3)
[2017-03-04 10:36] LABS: BUN (BLOOD UREA NITROGEN) 99 MG/DL (6-23); CHLORIDE, SERUM 96 MMOL/L (96-112); CO2 (CARBON DIOXIDE) 33 MMOL/L (24-34); CREATININE 1.71 MG/DL (0.55-1.02); GFR AFRICAN AMERICAN 33 ML/MIN (>=60); GFR NON AFRICAN AMERICAN 29 ML/MIN (>=60); GLUCOSE, SERUM 98 MG/DL (60-99); POTASSIUM, SERUM 4.1 MMOL/L (3.5-5.3); SODIUM, SERUM 137 MMOL/L (135-148)
[2017-03-05 06:46] LABS: BASOPHILS 0 %; EOSINOPHILS 2.4 %; EOSINOPHILS ABSOLUTE 0.18 10/3/uL (0.0-0.53); HEMATOCRIT 34.9 % (36.0-48.0); HEMOGLOBIN 10.9 g/dL (12.0-16.0); IMMATURE GRANULOCYTES 0.1 %; IMMATURE GRANULOCYTES ABSOLUTE 0.01 10/3/uL (0.0-0.11); LYMPHOCYTES 9.8 %; LYMPHOCYTES ABSOLUTE 0.73 10/3/uL (0.67-4.30); MEAN CORPUS HGB CONC 31.2 g/dL (32.0-36.0); MEAN CORPUSCULAR HEMOGLOB 26.7 pg (26.0-34.0); MEAN CORPUSCULAR VOLUME 85.3 fL (80-100); MEAN PLATELET VOLUME 10.7 fL (9.2-13.0); MONOCYTES 8.7 %; MONOCYTES ABSOLUTE 0.65 10/3/uL (0.21-1.20); NEUTROPHILS ABSOLUTE 5.86 10/3/uL (2.02-8.40); PLATELET COUNT 165 10/3/uL (150-400); RBC DISTRIBUTION WIDTH 17.6 % (12.0-16.0); RED CELL COUNT 4.09 10/6/uL (4.0-5.6); WHITE BLOOD CELLS 7.4 10/3/uL (4.5-10.5)
[2017-03-05 06:47] LABS: MANUAL DIFF NO %
[2017-03-05 06:48] LABS: INTERNATIONAL NORMAL RATI 2.2 UNITS (-)
[2017-03-05 06:51] LABS: BUN (BLOOD UREA NITROGEN) 102 MG/DL (6-23); CALCIUM, SERUM 9.3 MG/DL (8.5-10.4); CHLORIDE, SERUM 98 MMOL/L (96-112); CO2 (CARBON DIOXIDE) 29 MMOL/L (24-34); CREATININE 1.98 MG/DL (0.55-1.02); GFR AFRICAN AMERICAN 28 ML/MIN (>=60); GFR NON AFRICAN AMERICAN 24 ML/MIN (>=60); GLUCOSE, SERUM 77 MG/DL (60-99); POTASSIUM, SERUM 3.9 MMOL/L (3.5-5.3); SODIUM, SERUM 137 MMOL/L (135-148)
[2017-03-06 06:40] LABS: BASOPHILS 0.1 %; BASOPHILS ABSOLUTE 0.01 10/3/uL (0.0-0.16); EOSINOPHILS 2.5 %; EOSINOPHILS ABSOLUTE 0.26 10/3/uL (0.0-0.53); HEMATOCRIT 35.6 % (36.0-48.0); HEMOGLOBIN 11.1 g/dL (12.0-16.0); IMMATURE GRANULOCYTES 0.2 %; IMMATURE GRANULOCYTES ABSOLUTE 0.02 10/3/uL (0.0-0.11); LYMPHOCYTES 7.7 %; MEAN CORPUS HGB CONC 31.2 g/dL (32.0-36.0); MEAN CORPUSCULAR HEMOGLOB 26.2 pg (26.0-34.0); MEAN CORPUSCULAR VOLUME 84.2 fL (80-100); MEAN PLATELET VOLUME 10.3 fL (9.2-13.0); MONOCYTES 6.6 %; MONOCYTES ABSOLUTE 0.68 10/3/uL (0.21-1.20); NEUTROPHILS 82.9 %; NEUTROPHILS ABSOLUTE 8.58 10/3/uL (2.02-8.40); PLATELET COUNT 185 10/3/uL (150-400); RBC DISTRIBUTION WIDTH 17.9 % (12.0-16.0); RED CELL COUNT 4.23 10/6/uL (4.0-5.6)
[2017-03-06 06:45] LABS: PROTIME (NOT ORD) 22.1 SEC (12.0-14.5)
[2017-03-06 06:47] LABS: MANUAL DIFF NO %; WHITE BLOOD CELLS 10.4 10/3/uL (4.5-10.5)
[2017-03-06 06:54] LABS: BUN (BLOOD UREA NITROGEN) 108 MG/DL (6-23); CHLORIDE, SERUM 95 MMOL/L (96-112); CO2 (CARBON DIOXIDE) 29 MMOL/L (24-34); CREATININE 2.27 MG/DL (0.55-1.02); GFR AFRICAN AMERICAN 24 ML/MIN (>=60); GFR NON AFRICAN AMERICAN 20 ML/MIN (>=60); GLUCOSE, SERUM 101 MG/DL (60-99); POTASSIUM, SERUM 3.9 MMOL/L (3.5-5.3); SODIUM, SERUM 133 MMOL/L (135-148)
[2017-03-06 14:16] LABS: CREATININE, URINE 40.9 MG/DL
[2017-03-07 06:37] LABS: INTERNATIONAL NORMAL RATI 1.9 UNITS (-)
[2017-03-07 06:44] LABS: CALCIUM, SERUM 8.7 MG/DL (8.5-10.4); CHLORIDE, SERUM 99 MMOL/L (96-112); CO2 (CARBON DIOXIDE) 27 MMOL/L (24-34); CREATININE 2.24 MG/DL (0.55-1.02); GFR AFRICAN AMERICAN 24 ML/MIN (>=60); GFR NON AFRICAN AMERICAN 21 ML/MIN (>=60); PHOSPHORUS, SERUM 2.9 MG/DL (2.5-4.5); POTASSIUM, SERUM 4.1 MMOL/L (3.5-5.3); SODIUM, SERUM 137 MMOL/L (135-148)
[2017-03-07 06:45] LABS: BUN (BLOOD UREA NITROGEN) 105 MG/DL (6-23); GLUCOSE, SERUM 80 MG/DL (60-99)
[2017-03-08 07:33] LABS: INTERNATIONAL NORMAL RATI 2.1 UNITS (-); PROTIME (NOT ORD) 23.6 SEC (12.0-14.5)
[2017-03-08 07:39] LABS: BUN (BLOOD UREA NITROGEN) 92 MG/DL (6-23); CALCIUM, SERUM 8.7 MG/DL (8.5-10.4); CHLORIDE, SERUM 100 MMOL/L (96-112); CO2 (CARBON DIOXIDE) 28 MMOL/L (24-34); CREATININE 2.12 MG/DL (0.55-1.02); GFR AFRICAN AMERICAN 26 ML/MIN (>=60); GFR NON AFRICAN AMERICAN 22 ML/MIN (>=60); GLUCOSE, SERUM 81 MG/DL (60-99); POTASSIUM, SERUM 3.9 MMOL/L (3.5-5.3); SODIUM, SERUM 139 MMOL/L (135-148)
[2017-03-09 06:39] LABS: INTERNATIONAL NORMAL RATI 2.6 UNITS (-)
[2017-03-09 06:40] LABS: PROTIME (NOT ORD) 27.7 SEC (12.0-14.5)
[2017-03-09 06:46] LABS: CALCIUM, SERUM 8.6 MG/DL (8.5-10.4); CHLORIDE, SERUM 100 MMOL/L (96-112); CO2 (CARBON DIOXIDE) 27 MMOL/L (24-34); GFR AFRICAN AMERICAN 29 ML/MIN (>=60); GFR NON AFRICAN AMERICAN 25 ML/MIN (>=60); GLUCOSE, SERUM 96 MG/DL (60-99); PHOSPHORUS, SERUM 2.9 MG/DL (2.5-4.5); SODIUM, SERUM 137 MMOL/L (135-148)
[2017-03-09 06:47] LABS: BUN (BLOOD UREA NITROGEN) 79 MG/DL (6-23)
== END 2017-03-09 20:31 | DRG 207 ==
LOC: ENRESERVDT → ENRESERVTM → ENRESERV → ER 12:14 → EDBEDREQ 14:53 → 6NO 15:12 → 7NO 15:12 → CVICU 15:12 → SDC/OF 02-23 10:57 → CVICU 02-23 11:39 → 7NO 03-04 16:16
PROVIDERS: Anesthesiology; Emergency Medicine; Hospitalist; Internal Medicine; Internal Medicine Critical Care Medicine; Internal Medicine Nephrology; Internal Medicine Pulmonary Disease
PROC: 5A1955Z Respiratory Ventilation, Greater than 96 Consecutive Hours (ICD-10-PCS; 2017-02-23)
PROC: 0BH17EZ Insertion of Endotracheal Airway into Trachea, Via Natural or Artificial Opening (ICD-10-PCS; 2017-02-23)
PROC: B246ZZ4 Ultrasonography of Right and Left Heart, Transesophageal (ICD-10-PCS; principal; 2017-02-23 14:30)
DX: J96.21 Acute and chronic respiratory failure with hypoxia (principal); N17.0 Acute kidney failure with tubular necrosis; R57.0 Cardiogenic shock; I50.23 Acute on chronic systolic (congestive) heart failure; E11.22 Type 2 diabetes mellitus with diabetic chronic kidney disease; I48.92 Unspecified atrial flutter; I25.5 Ischemic cardiomyopathy; I25.10 Atherosclerotic heart disease of native coronary artery without angina pectoris; I13.0 Hypertensive heart and chronic kidney disease with heart failure and stage 1 through stage 4 chronic kidney disease, or unspecified chronic kidney disease; J44.1 Chronic obstructive pulmonary disease with (acute) exacerbation; I48.91 Unspecified atrial fibrillation; N18.3 Chronic kidney disease, stage 3 (moderate); K21.9 Gastro-esophageal reflux disease without esophagitis; I44.7 Left bundle-branch block, unspecified; D50.9 Iron deficiency anemia, unspecified; F41.9 Anxiety disorder, unspecified; F32.9 Major depressive disorder, single episode, unspecified; E78.5 Hyperlipidemia, unspecified; Z95.1 Presence of aortocoronary bypass graft; Z87.01 Personal history of pneumonia (recurrent); Z88.5 Allergy status to narcotic agent; Z88.8 Allergy status to other drugs, medicaments and biological substances; Z95.5 Presence of coronary angioplasty implant and graft; Z87.891 Personal history of nicotine dependence
CPT/HCPCS: 31720; 36600; 71010; 71020; 74000; 76700; 80048; 80053; 80069; 80076; 81001; 82330; 82533; 82570; 82805; 82962; 83735; 83880; 84100; 84132; 84145; 84156; 84300; 84436; 84443; 84484; 84540; 84550; 85014; 85018; 85025; 85610; 85730; 87040; 87070; 87086; 87205; 87641; 93005; 93312; 93320; 93325; 94002; 94003; 94640; 94660; 94770; 97116-GP; 97162-GP; 97164-GP; 97166-GO; 97530-GO; 97530-GP; 97535-GO; 99285; A9270-GY; C1751; C1769; C1781; C1894; C9113; G8978-CK-GP; G8978-CL-GP; G8979-CJ-GP; G8979-CK-GP; G8980-CJ-GP; J0282; J0330; J0456; J1205; J1265; J2250; J2370; J2405; J2920; J3010; J3411; J3475; P9047